=== PATIENT | female | born 1985 | race Caucasian/White ===

== ENCOUNTER 2017-02-03 11:30 | Emergency (ER) | payer OTHER ==
[2017-02-03 13:06] LABS: BLOOD, URINE NEG (NEG); COMMENT (UR) CULT NOT INDICATED; CULTURE IF INDICATED CULT NOT INDICATED; GLUCOSE,URINE NEG (NEG); KETONE, URINE NEG (NEG); MUCUS URINE FEW /lpf (OCC); NITRITE,URINE NEG (NEG); SQUAMOUS EPITHELIAL CELL URINE 2 /hpf (0-5); URINE COLOR YELLOW (YELLW/STRAW)
[2017-02-03] MEDS ORDERED: FLUCONAZOLE 100 MG TAB PO ONE (13:45)
--- NOTE | 2017-02-03 14:03 | PD ---
HPI Chief Complaint diarrhea, vaginal discharge, burning with urination Date Seen: Feb 03, 2017 Time Seen: 13:00 Travel History International Travel<30 Days: No Contact w/Intl Traveler<30Days: No Known Affected Area: No History of Present Illness HPI Pt is a 31 y/o with IUP at 24.2 by 22 wk u/s who presents from [facility] for evaluation of diarrhea x 3 days, white/clumpy vaginal discharge, and burning with urination. Pt states she took antibiotics recently (completed course 1 wk ago) for UTI and has had white vaginal discharge since. She also has trouble starting stream of urination and external discomfort when she does urinate. Pt states diarrhea started 3 days ago and is clear without color. She reports some light spotting intermittently (and states she has had this throughout , dx with subchorionic hemorrhage earlier in ). Pt currently resides in [facility] for h/o drug abuse. Pt was on subutex 4 mg per day until 6 days ago when she got out of detox and was transferred to [facility]. Para: 4 : 10 Miscarriage: 2 : 3 History Past Medical History Narrative Medical psoriasis h/o IV drug use hep C + Obstetric History Obstetric History blighted ovum x 2 EAB x 3 2002 FTSVD complicated by retained placenta, readmission for infection, had D+C 2005 FTSVD 2010 FTSVD 2012 FTSVD complicated by gest DM Past Surgical History Narrative Surgical D+C breast augmentation [facility] for pelvic pain/ov cyst Family History Family History: Negative Social History Alcohol Use: No Tobacco Use: No Substance Abuse: Yes (h/o IV drug use, previously on subutex, denies any drug use currently) Allergies-Medications (Allergen,Severity, Reaction): Coded Allergies: Doxycycline (Verified Allergy, Intermediate, Hives, 10/05/16) Home Meds Active Scripts Hydroxyzine Pamoate 50 Mg Cap50 Mg PO Q8H PRN (anxiety) #90 CAP Prov:Claudia Ya MD 02/03/17 Clonidine (Catapres)0.1 Mg Tab0.1 Mg PO Q6H PRN (withdrawal) #90 TAB Prov:Claudia Ya MD 02/03/17 Narrative Medication vitamin Review of Systems General / Constitutional: No: Fever Respiratory: No: Cough, Short of Breath, Wheezing, Other Gastrointestinal: Diarrhea, Loss of Appetite Genitourinary: Hesitancy, Discharge Musculoskeletal: No: Limited ROM, Weakness, Cramping, Edema, Pain, Other Skin: Lesions Neurologic: No: Weakness, Dizziness, Syncope, Focal Abnormalities, Coordination Problem, Headache, Slurred Speech, Seizures, Other Psychiatric: No: Anxiety, Depression, Suicidal Ideations, Disorder of Thought, Mood Disorder, Substance Abuse, Homicidal Ideation, Other Endocrine: No: Heat Intolerance, Cold Intolerance, Polydipsia, Polyuria, Other Hematologic/Lymphatic: No Easy Bruising, No Lymph Node Enlargement, No Other Physical Exam T 98.2 BP 91/59 P 78 R 16 FHTs 140s Narrative GENERAL: Well-nourished, well-developed patient. SKIN: Warm and dry. HEAD: Normocephalic and atraumatic. EYES: No scleral icterus. No injection or drainage. ENT: No nasal drainage noted. Mucous membranes pink. Airway patent. NECK: Supple, trachea midline. No JVD. CARDIOVASCULAR: Regular rate and rhythm without murmurs, gallops, or rubs. RESPIRATORY: Breath sounds equal bilaterally. No accessory muscle use. ABDOMEN/GI: Abdomen soft, non-tender, bowel sounds present, no rebound, no guarding Gravid GENITOURINARY: External Genitalia: intact and normal in appearance BUS glands: [wnl] Cervix: closed/long/firm Dilatation: closed Effacement: 0 Station: high Presentation: - Membranes: intact Uterine Contractions: none FHT's: 140s EXTREMITIES: No cyanosis or edema. BACK: Nontender without obvious deformity. No CVA tenderness. NEUROLOGICAL: Awake and alert. Motor and sensory grossly within normal limits. Five out of 5 muscle strength in all muscle groups. Normal speech. Data Data Vital Signs Reviewed: Yes Orders Vital Signs (Adult) .ON ADMISSION (02/03/17 12:28) ^ Labor Status (02/03/17 12:28) Urinalysis - C+S If Indicated (02/03/17 12:28) Wet Prep Profile (02/03/17 12:28) Drug Screen, Random Urine (02/03/17 12:28) ^ Hydration (02/03/17 12:45) Lactated Ringer's 1000 Ml Inj (Lr 1000 M (02/03/17 12:45) Fluconazole (Diflucan) (02/03/17 13:45) Labs Laboratory Tests Test 02/03/17 02/03/17 12:30 12:45 Urine Color YELLOW Urine Turbidity CLEAR Urine pH 6.0 Urine Specific [place] 1.018 Urine Protein NEG Urine Glucose (UA) NEG Urine Ketones NEG Urine Occult Blood NEG Urine Nitrite NEG Urine Bilirubin NEG Urine Urobilinogen LESS THAN 2.0 Urine Leukocyte Esterase NEG Urine RBC 1 Urine WBC 1 Urine Squamous Epithelial 2 Cells Urine Mucus FEW Microscopic Urinalysis Comment CULT NOT INDICATED Urine Opiates Screen NEG Urine Barbiturates Screen NEG Urine Amphetamines Screen NEG Urine Benzodiazepines Screen NEG Urine Cocaine Screen NEG Urine Cannabinoids Screen NEG Clue Cells (Wet Prep) NONE SEEN Vaginal Trichomonas (Wet Prep) NONE SEEN Vaginal Yeast (Wet Prep) NONE SEEN MDM Medical Record Reviewed: Yes Narrative Course / MDM 31 y/o with IUP at 24.2 weeks with diarrhea x 3 days, vaginal discharge and external burning with urination 1. diarrhea--possibly secondary to mild withdrawal versus gastroenteritis. Pt appears well. Will give IVF. advised pt she can take benadryl 25 mg q 6 h for mild symptoms. Can also take immodium OTC for up to 48 hrs. 2. dysuria/vag discharge--recently completed course of abx for UTI. UA clean, so possible yeast infection. Will give diflucan x 1 dose 3. hep C + 4. h/o IV drug use--currently at [facility]. [facility] with Dr. Cueva. Diagnosis Diagnosis: Primary Impression: Diarrhea Qualified Code: R19.7 - Diarrhea, unspecified type Additional Impression: 24 weeks gestation of Disposition: DISCHARGE HOME Scripts Hydroxyzine Pamoate 50 Mg Cap50 Mg PO Q8H PRN (anxiety) #90 CAP Prov:Claudia Ya MD 02/03/17 Clonidine (Catapres)0.1 Mg Tab0.1 Mg PO Q6H PRN (withdrawal) #90 TAB Prov:Claudia Ya MD 02/03/17 Michael Lancaster MD Feb 03, 2017 14:03
[2017-02-03 15:02] VITALS: BP 96/61; PULSE 80
[2017-02-03] MEDS: LACTATED RINGER'S 1000 ML INJ 1,000 ML IV SCH ×2 (15:04→17:40)
[2017-02-03 15:56] LABS: AMPHETAMINE, URINE NEG (NEG); BARBITURATES, URINE NEG (NEG); COCAINE, URINE NEG (NEG)
[2017-02-03] MEDS ORDERED: ALUMINUM/MAGNESIUM/SIMETH 30 ML CUP PO ONE (17:00)
[2017-02-03 17:34] LABS: INDIRECT BILIRUBIN 0.2 MG/DL (0.0-0.8); TOTAL BILIRUBIN ADULT 0.3 MG/DL (0.2-1.0)
[2017-02-03 17:39] VITALS: BP 94/56; PULSE 74
[2017-02-03 17:45] VITALS: RESP 16; TEMP 98.5
[2017-02-03] MEDS ORDERED: cloNIDine HCL 0.1 MG TAB PO PRN (17:45)
--- NOTE | 2017-02-03 17:48 | PD.CONS ---
HPI Travel History International Travel<30 Days: No Contact w/Intl Traveler<30Days: No Known Affected Area: No History of Present Illness HPI recent transfer from senior care to [place] to [facility] who had been on low dose subutex --feels she is having profound, delayed withdrawal. N, V, headaches, diarrhea, sweating. GFM no leaking or bleeding, No Ucs Allergies-Medications (Allergen,Severity, Reaction): Coded Allergies: Doxycycline (Verified Allergy, Intermediate, Hives, 10/05/16) Home Meds No Active Prescriptions or Reported Meds Physical Exam Vital Signs Date Time Temp Pulse Resp B/P Pulse Ox O2 Delivery O2 Flow Rate FiO2 02/03/17 15:02 80 96/61 Narrative GENERAL: Well-nourished, well-developed patient. SKIN: Warm and dry. HEAD: Normocephalic and atraumatic. EYES: No scleral icterus. No injection or drainage. mild pupil dilation with reactivity consistent with mild withdrawal ENT: No nasal drainage noted. Mucous membranes pink. Airway patent. NECK: Supple, trachea midline. No JVD. CARDIOVASCULAR: Regular rate and rhythm without murmurs, gallops, or rubs. RESPIRATORY: Breath sounds equal bilaterally. No accessory muscle use. BREASTS: Bilateral exam showed no masses , no retractions, no nipple discharge. ABDOMEN/GI: Abdomen soft, non-tender, bowel sounds present, no rebound, no guarding 24 week fundus strip reassuring EXTREMITIES: No cyanosis or edema. BACK: Nontender without obvious deformity. No CVA tenderness. NEUROLOGICAL: Awake and alert. Motor and sensory grossly within normal limits. Five out of 5 muscle strength in all muscle groups. Normal speech. Data Data Orders Vital Signs (Adult) .ON ADMISSION (02/03/17 12:28) ^ Labor Status (02/03/17 12:28) Urinalysis - C+S If Indicated (02/03/17 12:28) Wet Prep Profile (02/03/17 12:28) ^ Hydration (02/03/17 12:45) Lactated Ringer's 1000 Ml Inj (Lr 1000 M (02/03/17 12:45) Fluconazole (Diflucan) (02/03/17 13:45) Vascular Access Team Consult PRN (02/03/17 13:54) Vascular Access Team Consult PRN (02/03/17 14:08) Vascular Access Team Consult PRN (02/03/17 14:09) Vascular Poc Ultrasound (02/03/17 ) Ob/Psych Drug Screen, Urine (02/03/17 15:27) Hepatic Functional Panel (02/03/17 15:35) Ur Bath Salts (02/03/17 12:30) Ur Heroin (02/03/17 12:30) Ur K2 Spice (02/03/17 12:30) Ur Ecstasy (02/03/17 12:30) Ur Methadone (02/03/17 12:30) Phencyclidine Urine (Pcp) (02/03/17 12:30) Al-Mag Hy-Si 40-40-4 Mg/Ml Liq (Mag-Al P (02/03/17 17:00) Diet Regular Basic (02/03/17 Dinner) Labs Laboratory Tests Test 02/03/17 02/03/17 02/03/17 12:30 12:45 16:40 Urine Color YELLOW Urine Turbidity CLEAR Urine pH 6.0 Urine Specific [place] 1.018 Urine Protein NEG Urine Glucose (UA) NEG Urine Ketones NEG Urine Occult Blood NEG Urine Nitrite NEG Urine Bilirubin NEG Urine Urobilinogen LESS THAN 2.0 Urine Leukocyte Esterase NEG Urine RBC 1 Urine WBC 1 Urine Squamous Epithelial 2 Cells Urine Mucus FEW Microscopic Urinalysis Comment CULT NOT INDICATED Urine Opiates Screen NEG Urine Barbiturates Screen NEG Urine Amphetamines Screen NEG Urine Benzodiazepines Screen NEG Urine Cocaine Screen NEG Urine Cannabinoids Screen NEG Clue Cells (Wet Prep) NONE SEEN Vaginal Trichomonas (Wet Prep) NONE SEEN Vaginal Yeast (Wet Prep) NONE SEEN Total Bilirubin 0.3 Direct Bilirubin 0.1 Indirect Bilirubin 0.2 Aspartate Amino Transf 13 (AST/SGOT) Alanine Aminotransferase 16 (ALT/SGPT) Alkaline Phosphatase 45 Total Protein 6.6 Albumin 2.9 MDM Plan not clear why but does appear to have delayed symptoms of withdrawal Will treat symptomatically with visteril and clonidine. can return to [facility] Scripts No Active Prescriptions or Reported Meds Claudia Ya MD Feb 03, 2017 17:48
[2017-02-03] MEDS ORDERED: CLON.1 PO (17:51)
[2017-02-03] MEDS ORDERED: HYDR50CA PO (17:51)
--- NOTE | 2017-02-03 17:51 | HHI.DCPOC ---
Discharge Care Plan Report Symptoms to Your Doctor -Temperate above 100.5 degrees -Redness, of incision or excessive or foul smelling drainage -Unusual pain or calf pain -Increased vaginal bleeding -Painful or difficulty urinating -Feelings of extreme sadness or anxiety after 2 weeks Goals to Promote Your Health * To prevent worsening of your condition and complications * To maintain your health at the optimal level Directions to Meet Your Goals Take your medications as prescribed Follow your dietary instruction Follow activity as directed Ensure plenty of rest for recovery Drink fluids for hydration Keep your appointments as scheduled Take your immunizations and boosters as scheduled If your symptoms worsen call your PCP, if no PCP go to Urgent Care Center or Emergency Room Smoking is Dangerous to Your Health. Avoid second hand smoke Call the 24-hour crisis hotline for domestic abuse at Claudia Ya MD Feb 03, 2017 17:51
[2017-02-09 12:51] LABS: BATH SALTS (MDPV) UR NEG (NEG); ECSTASY (MDMA) UR NEG (NEG); HEROIN (6-ACETYLMORPHINE) UR NEG (NEG); K2 SPICE UR NEG (NEG); OBMETHADONE UR NEG (NEG); OXYCODONE (PERCODAN) NEG (NEG); PHENCYCLIDINE URINE NEG (NEG)
== END 2017-02-03 20:05 | disposition home or self-care (01) ==
LOC: HOBED 11:30
DX: O26.892 Other specified pregnancy related conditions, second trimester (principal); R19.7 Diarrhea, unspecified; N89.8 Other specified noninflammatory disorders of vagina; O26.852 Spotting complicating pregnancy, second trimester; O98.412 Viral hepatitis complicating pregnancy, second trimester; B19.20 Unspecified viral hepatitis C without hepatic coma; Z87.2 Personal history of diseases of the skin and subcutaneous tissue; Z3A.24 24 weeks gestation of pregnancy
CPT/HCPCS: 76937; 80076; 80307; 81001; 87210; 96360; 96361; 99283; G0481; J7120

== ENCOUNTER 2017-03-23 13:41 | Emergency (ER) | payer MEDICAID, OTHER ==
[~2017-03-23 13:41] MED LIST: CLON.1 PO; HYDR50CA PO
--- NOTE | 2017-03-23 14:18 | PD ---
HPI Chief Complaint LLQ pain Date Seen: March 23, 2017 Time Seen: 14:15 Travel History International Travel<30 Days: No Contact w/Intl Traveler<30Days: No Known Affected Area: No History of Present Illness HPI 31-year-old female G 10 P4 who is at 31 weeks and 2 days complaining a left lower quadrant pain that began yesterday. Patient has good movement and denies contractions denies dysuria and frequency. She does states she had a urinary tract infection 2 months ago that was treated with antibiotics. Para: 4 : 10 Miscarriage: 5 History Past Medical History Medical History: Denies Significant Hx Obstetric History Obstetric History Spontaneous vaginal delivery 4 Past Surgical History Narrative Surgical D&C Laparoscopy Breast augmentation Social History Alcohol Use: No Tobacco Use: No Substance Abuse: No Allergies-Medications (Allergen,Severity, Reaction): Coded Allergies: Doxycycline (Verified Allergy, Intermediate, Hives, 10/05/16) Home Meds Active Scripts Hydroxyzine Pamoate 50 Mg Cap50 Mg PO Q8H PRN (anxiety) #90 CAP Prov:Claudia Ya MD 02/03/17 Clonidine (Catapres)0.1 Mg Tab0.1 Mg PO Q6H PRN (withdrawal) #90 TAB Prov:Claudia Ya MD 02/03/17 Review of Systems Except as stated in HPI: all other systems reviewed are Neg Physical Exam Narrative GENERAL: Well-nourished, well-developed patient. SKIN: Warm and dry. HEAD: Normocephalic and atraumatic. EYES: No scleral icterus. No injection or drainage. ENT: No nasal drainage noted. Mucous membranes pink. Airway patent. NECK: Supple, trachea midline. No JVD. CARDIOVASCULAR: Regular rate and rhythm without murmurs, gallops, or rubs. RESPIRATORY: Breath sounds equal bilaterally. No accessory muscle use. BREASTS: Bilateral exam showed no masses , no retractions, no nipple discharge. ABDOMEN/GI: Abdomen soft, non-tender, bowel sounds present, no rebound, no guarding Gravid to [-] 32 weeks size Fundal Height: [-] GENITOURINARY: External Genitalia: intact and normal in appearance BUS glands: [-Normal] Cervix: [-Posterior] Dilatation: [-Closed] Effacement: [-0] Station: [--4 ballotable Presentation: [Vertex-] Membranes: [intact ] Uterine Contractions: [-Absent] FHT's: Category: [1-] Baseline: [-140] Reactive: [-Moderate] Variability: [Moderate-] Decels: [Absent-] EXTREMITIES: No cyanosis or edema. BACK: Nontender without obvious deformity. No CVA tenderness. NEUROLOGICAL: Awake and alert. Motor and sensory grossly within normal limits. Five out of 5 muscle strength in all muscle groups. Normal speech. Data Data Vital Signs Reviewed: Yes Labs Laboratory Tests Test 03/23/17 14:05 Urine Color YELLOW Urine Turbidity CLEAR Urine pH 5.5 Urine Specific [place] 1.026 Urine Protein TRACE mg/dL Urine Glucose (UA) NEG mg/dL Urine Ketones NEG mg/dL Urine Occult Blood NEG Urine Nitrite NEG Urine Bilirubin NEG Urine Urobilinogen LESS THAN 2.0 MG/DL Urine Leukocyte Esterase NEG Urine RBC 1 /hpf Urine WBC 1 /hpf Urine Squamous Epithelial <1 /hpf Cells Urine Mucus FEW /lpf Microscopic Urinalysis Comment CULT NOT INDICATED MDM Medical Record Reviewed: Yes Plan 31-year-old female at 31 weeks 2 days with round ligament pain on the left side. No signs or symptoms of labor at this time. UA is negative. Diagnosis Diagnosis: Primary Impression: 31 weeks gestation of Additional Impression: Pain of round ligament affecting , antepartum Disposition: 01 DISCHARGE HOME Teri Robertson MD March 23, 2017 14:18
[2017-03-23 15:26] LABS: BLOOD, URINE NEG (NEG); COMMENT (UR) CULT NOT INDICATED; CULTURE IF INDICATED CULT NOT INDICATED; GLUCOSE,URINE NEG (NEG); KETONE, URINE NEG (NEG); MUCUS URINE FEW /lpf (OCC); NITRITE,URINE NEG (NEG); PH, URINE 5.5 (5.0-8.5); SQUAMOUS EPITHELIAL CELL URINE <1 /hpf (0-5); URINE COLOR YELLOW (YELLW/STRAW)
== END 2017-03-23 15:35 | disposition home or self-care (01) ==
LOC: HOBED 13:41
DX: O26.93 Pregnancy related conditions, unspecified, third trimester (principal); R10.2 Pelvic and perineal pain; Z3A.31 31 weeks gestation of pregnancy
CPT/HCPCS: 81001; 99284

== ENCOUNTER 2017-04-17 15:53 | Observation (INO) | payer MEDICAID ==
[~2017-04-17] VITALS: Ht 170.2 cm; Wt 83.5 kg
[2017-04-17] VITALS (36 sets, daily range): BP systolic 104–117; BP diastolic 54–76; PULSE 70–92; RESP 16–18; TEMP 98.2–98.8
[2017-04-17] MEDS: LACTATED RINGER'S 1000 ML INJ 1,000 ML IV SCH (07:00)
--- NOTE | 2017-04-17 16:52 | PD ---
HPI Chief Complaint Vaginal bleeding Date Seen: Apr 17, 2017 Time Seen: 16:25 Travel History International Travel<30 Days: No Contact w/Intl Traveler<30Days: No Known Affected Area: No History of Present Illness HPI 31-year-old 7 para 4 AB 2 at 34-6/7 weeks' gestation with an EDC of May 24 who is currently an inpatient at [facility]. Patient states that at approximately 2 this afternoon she began having some lower back pain and then at 2:30 noticed that she was having some vaginal bleeding with passage of small clots about the size of a nickel. She denies leakage of fluid but does report a mucousy vaginal discharge. She denies trauma. The patient is currently clean and reports no recreational drug use since January. She was on Subutex but has been weaned off of this. She is an ex- smoker with none since January. Para: 4 : 7 Miscarriage: 2 History Past Medical History Narrative Medical Hepatitis C positive History of narcotic abuse Obstetric History Obstetric History 4 term vaginal deliveries, her last delivery was complicated by preeclampsia 2 D&Cs for blighted ovum Past Surgical History Narrative Surgical D&C 2 for blighted ovum Laparoscopy for ovarian cyst Family History Family History: Negative Social History Alcohol Use: No Tobacco Use: Yes (she quit in January) Substance Abuse: Yes (history of Dilaudid abuse and is now reportedly clean since January) Allergies-Medications (Allergen,Severity, Reaction): Coded Allergies: Doxycycline (Verified Allergy, Intermediate, Hives, 10/05/16) Home Meds Active Scripts Hydroxyzine Pamoate 50 Mg Cap50 Mg PO Q8H PRN (anxiety) #90 CAP Prov:Claudia Ya MD 02/03/17 Clonidine (Catapres)0.1 Mg Tab0.1 Mg PO Q6H PRN (withdrawal) #90 TAB Prov:Claudia Ya MD 02/03/17 Review of Systems General / Constitutional: No: Fever, Weight Gain, Chills, Other Eyes: No: Visual changes HENT: No: Headaches, Vertigo, Lightheadedness Cardiovascular: No: Irregular Rhythm, Chest Pain or Discomfort, Palpitations, Tachycardia, Syncope, Varicosities, Edema, Cyanosis Respiratory: No: Cough, Short of Breath, Other Gastrointestinal: No: Nausea, Vomiting, Diarrhea Genitourinary: Vaginal Bleeding, No: Urgency, Frequency, Dysuria, Hematuria Physical Exam Narrative GENERAL: Well-nourished, well-developed patient. SKIN: Warm and dry. HEAD: Normocephalic and atraumatic. EYES: No scleral icterus. No injection or drainage. ENT: No nasal drainage noted. Mucous membranes pink. Airway patent. NECK: Supple, trachea midline. No JVD. CARDIOVASCULAR: Regular rate and rhythm without murmurs, gallops, or rubs. RESPIRATORY: Breath sounds equal bilaterally. No accessory muscle use. ABDOMEN/GI: Abdomen soft, non-tender, bowel sounds present, no rebound, no guarding Gravid to [-] weeks size Fundal Height: [35-] GENITOURINARY: External Genitalia: intact and normal in appearance BUS glands: [-Negative] there is dark blood in the vaginal vault and cervical mucus Cervix: [No lesions or inflammation-] Dilatation: [Closed internally-] Effacement: [-Long] Station: [High-] Presentation: [-Breech] Membranes: [intact] Uterine Contractions: [Mild irregular-] FHT's: Category: [2-] Baseline: [130s-] Reactive: [Yes-] Variability: [-Moderate] Decels: [Variable-] EXTREMITIES: No cyanosis or edema. BACK: Nontender without obvious deformity. No CVA tenderness. NEUROLOGICAL: Awake and alert. Motor and sensory grossly within normal limits. Five out of 5 muscle strength in all muscle groups. Normal speech. Data Data Vital Signs Reviewed: Yes Orders Vital Signs (Adult) .ON ADMISSION (04/17/17 16:28) ^ Labor Status (04/17/17 16:28) Urinalysis - C+S If Indicated (04/17/17 16:28) ^ Non Stress Test (04/17/17 16:28) ^ Hydration (04/17/17 16:28) Wet Prep Profile (04/17/17 16:28) Gc And Chlamydia Pcr (04/17/17 16:28) Group B Beta Strep Scrn (Gbs) (04/17/17 16:28) Drug Screen, Random Urine (04/17/17 16:28) MDM Medical Record Reviewed: Yes Narrative Course / MDM Assessment: 34-6/7 week gestation with vaginal bleeding Plan: Oral hydration with continuous monitoring Urinalysis, wet prep, GBS, GC chlamydia Biophysical profile and amniotic fluid index René Tovar MD Apr 17, 2017 16:52
[2017-04-17 17:10] LABS: BLOOD, URINE SMALL (NEG); COMMENT (UR) CULT NOT INDICATED; CULTURE IF INDICATED CULT NOT INDICATED; GLUCOSE,URINE NEG (NEG); KETONE, URINE NEG (NEG); MUCUS URINE FEW /lpf (OCC); NITRITE,URINE NEG (NEG); PH, URINE 6.5 (5.0-8.5); SQUAMOUS EPITHELIAL CELL URINE <1 /hpf (0-5); URINE COLOR YELLOW (YELLW/STRAW)
[2017-04-17 17:15] LABS: AMPHETAMINE, URINE NEG (NEG); BARBITURATES, URINE NEG (NEG); COCAINE, URINE NEG (NEG)
[2017-04-17] MEDS ORDERED: TERBUTALINE INJ 1 MG/ML AMP ONE (18:00)
[2017-04-17 18:10] LABS: AUTOMATED NEUTROPHIL # 8.9 TH/MM3 (1.8-7.7); BASOPHIL # 0.1 TH/MM3 (0-0.2); BASOPHIL % 0.6 % (0.0-2.0); EOSINOPHIL # 0.1 TH/MM3 (0-0.4); EOSINOPHIL % 0.5 % (0.0-4.0); HEMATOCRIT 37.1 % (35.0-46.0); HEMO FLAGS DIFF FINAL; LYMPH % 21.1 % (9.0-44.0); LYMPHOCYTE # 2.6 TH/MM3 (1.0-4.8); MEAN CELL VOLUME 91.9 FL (80.0-100.0); MEAN CORPUSCULAR HGB CONC 33.8 % (32.0-36.0); MONO % 5.2 % (0.0-8.0); NEUT % 72.6 % (16.0-70.0); PLATELET COUNT 242 TH/MM3 (150-450); RED BLOOD COUNT 4.04 MIL/MM3 (4.00-5.30); RED CELL DISTRIBUTION WIDTH 13.9 % (11.6-17.2); WHITE BLOOD COUNT 12.3 TH/MM3 (4.0-11.0)
[2017-04-17] MEDS ORDERED: LACTATED RINGER'S 1000 ML INJ 1,000 ML IV STA (19:55)
[2017-04-17] MEDS ORDERED: TERBUTALINE INJ 1 MG/ML AMP SQ SCH (20:00)
[2017-04-17] MEDS: BETAMETHASONE SOD PHOS/ACETATE SUSP 30 MG/5 ML VIAL IM SCH (20:10)
[2017-04-17 20:15] LABS: CHLAMYDIA PCR NOT DETECTED (NOT DETECT); NEISSERIA PCR NOT DETECTED (NOT DETECT)
[2017-04-17] MEDS: ALUMINUM/MAGNESIUM/SIMETH 30 ML CUP PO SCH (23:59)
[2017-04-18] VITALS (14 sets, daily range): BP systolic 78–109; BP diastolic 38–56; PULSE 68–92; RESP 17–18; TEMP 97.6–98.4
[2017-04-18] MEDS: LACTATED RINGER'S 1000 ML INJ 1,000 ML IV SCH (04:00)
--- NOTE | 2017-04-18 09:33 | PD.OB.ANTE ---
Subjective Interval History Placed in observation for contractions and bleeding with several clots at 34+ weeks. Currently at [facility] and had very upsetting day yesterday, learning that additional charges from 2 years ago may cause her to be sentenced out. All agree she is best at [facility] and I will petition [employer] today. Bleeding now spotting only. UCs have resolved. Strip beautiful. She appears rested and comfortable. Objective Vital Signs Vital Signs Date Time Temp Pulse Resp B/P Pulse Ox O2 Delivery O2 Flow Rate FiO2 04/18/17 08:00 98.1 17 04/18/17 07:14 70 90/38 04/18/17 02:00 98.4 18 04/18/17 01:59 71 87/40 04/18/17 00:15 97.6 18 04/18/17 00:03 71 100/50 04/18/17 00:02 68 78/38 04/17/17 21:25 81 04/17/17 21:20 82 04/17/17 21:15 85 04/17/17 21:10 80 04/17/17 21:05 78 04/17/17 21:00 80 04/17/17 20:55 83 04/17/17 20:50 83 04/17/17 20:45 85 04/17/17 20:40 86 04/17/17 20:35 81 04/17/17 20:30 79 04/17/17 20:25 83 04/17/17 20:20 81 04/17/17 20:15 79 04/17/17 20:10 83 04/17/17 20:05 84 04/17/17 20:00 84 04/17/17 19:55 80 04/17/17 19:50 86 04/17/17 19:45 83 04/17/17 19:40 82 04/17/17 19:35 84 04/17/17 19:30 82 04/17/17 19:25 81 04/17/17 19:20 81 04/17/17 19:15 84 04/17/17 19:15 98.2 18 04/17/17 19:10 87 04/17/17 19:05 82 104/54 04/17/17 19:05 85 04/17/17 18:40 86 04/17/17 17:40 70 04/17/17 17:35 72 04/17/17 17:34 98.8 16 04/17/17 17:32 73 113/62 04/17/17 16:15 18 04/17/17 16:15 98.8 04/17/17 16:07 92 117/76 Lab & Micro Results Test 04/17/17 04/17/17 16:22 17:55 Urine Color YELLOW Urine Turbidity HAZY Urine pH 6.5 Urine Specific [place] 1.027 Urine Protein TRACE mg/dL Urine Glucose (UA) NEG mg/dL Urine Ketones NEG mg/dL Urine Occult Blood SMALL Urine Nitrite NEG Urine Bilirubin NEG Urine Urobilinogen LESS THAN 2.0 MG/DL Urine Leukocyte Esterase NEG Urine RBC 21 /hpf Urine WBC 3 /hpf Urine Squamous Epithelial <1 /hpf Cells Urine Amorphous Sediment RARE Urine Mucus FEW /lpf Microscopic Urinalysis Comment CULT NOT INDICATED Clue Cells (Wet Prep) NONE SEEN Vaginal Trichomonas (Wet Prep) NONE SEEN Vaginal Yeast (Wet Prep) NONE SEEN Urine Opiates Screen NEG Urine Barbiturates Screen NEG Urine Amphetamines Screen NEG Urine Benzodiazepines Screen NEG Urine Cocaine Screen NEG Urine Cannabinoids Screen NEG Chlamydia trachomatis DNA NOT DETECTED (PCR) Neisseria gonorrhoeae DNA NOT DETECTED (PCR) White Blood Count 12.3 TH/MM3 Red Blood Count 4.04 MIL/MM3 Hemoglobin 12.5 GM/DL Hematocrit 37.1 % Mean Corpuscular Volume 91.9 FL Mean Corpuscular Hemoglobin 31.0 PG Mean Corpuscular Hemoglobin 33.8 % Concent Red Cell Distribution Width 13.9 % Platelet Count 242 TH/MM3 Mean Platelet Volume 7.5 FL Neutrophils (%) (Auto) 72.6 % Lymphocytes (%) (Auto) 21.1 % Monocytes (%) (Auto) 5.2 % Eosinophils (%) (Auto) 0.5 % Basophils (%) (Auto) 0.6 % Neutrophils # (Auto) 8.9 TH/MM3 Lymphocytes # (Auto) 2.6 TH/MM3 Monocytes # (Auto) 0.6 TH/MM3 Eosinophils # (Auto) 0.1 TH/MM3 Basophils # (Auto) 0.1 TH/MM3 CBC Comment DIFF FINAL Differential Comment Band and Hold Date/Time Procedure Status Source Growth 04/17/17 16:22 Group B Streptococcus Screen Received Genital Genital Region Pending Physical Exam GENERAL: Well-nourished, well-developed patient. CARDIOVASCULAR: Regular rate and rhythm without murmurs, gallops, or rubs. RESPIRATORY: Breath sounds equal bilaterally. No accessory muscle use. ABDOMEN/GI: Abdomen soft, non-tender. 34 week fundus cervix not checked she is P4 EXTREMITIES: No cyanosis or edema, non-tender, without signs of DVT. Assessment and Plan Assessment and Plan complete course of steroids discharge to copywriting intern am dc fluids seroquel 25 q HS Claudia Ya MD Apr 18, 2017 09:33
[2017-04-18] MEDS: ALUMINUM/MAGNESIUM/SIMETH 30 ML CUP PO SCH (19:37)
[2017-04-18] MEDS: BETAMETHASONE SOD PHOS/ACETATE SUSP 30 MG/5 ML VIAL IM SCH (20:39)
[2017-04-18] MEDS ORDERED: QUEtiapine FUMARATE 25 MG TAB PO SCH (21:00)
[2017-04-19 08:10] VITALS: BP 105/56; PULSE 72
--- NOTE | 2017-04-19 08:11 | HHI.DCPOC ---
Discharge Care Plan Report Symptoms to Your Doctor -Temperature above 100.5 degrees -Redness, of incision or excessive or foul smelling drainage -Unusual pain or calf pain -Increased vaginal bleeding -Painful or difficulty urinating -Feelings of extreme sadness or anxiety after 2 weeks Goals to Promote Your Health * To prevent worsening of your condition and complications * To maintain your health at the optimal level Directions to Meet Your Goals Take your medications as prescribed Follow your dietary instruction Follow activity as directed Ensure plenty of rest for recovery Drink fluids for hydration Keep your appointments as scheduled Take your immunizations and boosters as scheduled If your symptoms worsen call your PCP, if no PCP go to Urgent Care Center or Emergency Room Smoking is Dangerous to Your Health. Avoid second hand smoke Call the 24-hour crisis hotline for domestic abuse at Claudia Ya MD Apr 19, 2017 08:11
[2017-04-19 08:12] VITALS: RESP 20; TEMP 98.1
== END 2017-04-19 09:52 | disposition home or self-care (01) ==
LOC: HOBED 15:53 → H2EA 17:17 → UNDOADMIN 17:19 → H2EA 17:22 → UNDOADMIN 17:22 → H2EA 17:31 → UNDOADMOB 17:31
PROVIDERS: ADMIT Obstetrics & Gynecology; ATTEND Obstetrics & Gynecology
DX: O46.93 Antepartum hemorrhage, unspecified, third trimester (principal); O47.03 False labor before 37 completed weeks of gestation, third trimester; Z3A.34 34 weeks gestation of pregnancy
CPT/HCPCS: 59025; 76816; 76819; 80307; 81001; 85025; 87081; 87210; 87491; 87591; 96374; 96375; 96376; 99285; G0378; J0702; J3010; J3105; J7120

== ENCOUNTER 2017-04-30 23:48 | Emergency (ER) | payer MEDICAID ==
--- NOTE | 2017-05-01 00:25 | PD ---
HPI Chief Complaint vaginal fluid, abdominal cramping Date Seen: May 01, 2017 Time Seen: 00:19 Travel History International Travel<30 Days: No Contact w/Intl Traveler<30Days: No Known Affected Area: No History of Present Illness HPI at 36 weeks 5 days comes in complaining of vaginal fluid that she noted for a couple times today and some lower abdominal cramping mild, intermittent that started in the afternoon. Last cervical exam patient had a group B strep done and her cervix was noted be 2 cm. No other complications during the , patient has a history of opioid use has gone through detox and is normal on no medication. Para: 4 : 7 Miscarriage: 2 History Past Medical History Medical History: Denies Significant Hx Obstetric History Obstetric History Spontaneous vaginal delivery 4 Miscarriage 2 Breast augmentation D&C Laparoscopy for ovarian cysts Family History Family History: Negative Social History Alcohol Use: No Tobacco Use: No Substance Abuse: No Allergies-Medications (Allergen,Severity, Reaction): Coded Allergies: Doxycycline (Verified Allergy, Intermediate, Hives, 10/05/16) Home Meds Active Scripts Hydroxyzine Pamoate 50 Mg Cap50 Mg PO Q8H PRN (anxiety) #90 CAP Prov:Claudia Ya MD 02/03/17 Clonidine (Catapres)0.1 Mg Tab0.1 Mg PO Q6H PRN (withdrawal) #90 TAB Prov:Claudia Ya MD 02/03/17 Review of Systems Except as stated in HPI: all other systems reviewed are Neg Physical Exam Narrative GENERAL: Well-nourished, well-developed patient. SKIN: Warm and dry. HEAD: Normocephalic and atraumatic. EYES: No scleral icterus. No injection or drainage. ENT: No nasal drainage noted. Mucous membranes pink. Airway patent. NECK: Supple, trachea midline. No JVD. CARDIOVASCULAR: Regular rate and rhythm without murmurs, gallops, or rubs. RESPIRATORY: Breath sounds equal bilaterally. No accessory muscle use. ABDOMEN/GI: Abdomen soft, non-tender, bowel sounds present, no rebound, no guarding Gravid to [-36] weeks size Fundal Height: [-] GENITOURINARY: External Genitalia: intact and normal in appearance BUS glands: [-Normal] Cervix: [Posterior-] Dilatation: [1-2-] Effacement: [-0] Station: [-High] Presentation: [Vertex-] Membranes: [intact with negative amnisure] Uterine Contractions: [-Occasional] FHT's: Category: [-1] Baseline: [140-] Reactive: [-Moderate] Variability: [-Moderate] Decels: [-Absent] EXTREMITIES: No cyanosis or edema. BACK: Nontender without obvious deformity. No CVA tenderness. NEUROLOGICAL: Awake and alert. Motor and sensory grossly within normal limits. Five out of 5 muscle strength in all muscle groups. Normal speech. Data Data Vital Signs Reviewed: Yes Orders Vital Signs (Adult) .ON ADMISSION (05/01/17 00:18) ^ Labor Status (05/01/17 00:18) Urinalysis - C+S If Indicated (05/01/17 00:18) Labs Laboratory Tests Test 05/01/17 00:05 Urine Color YELLOW Urine Turbidity CLEAR Urine pH 5.5 Urine Specific [place] 1.014 Urine Protein TRACE mg/dL Urine Glucose (UA) NEG mg/dL Urine Ketones NEG mg/dL Urine Occult Blood NEG Urine Nitrite NEG Urine Bilirubin NEG Urine Urobilinogen LESS THAN 2.0 MG/DL Urine Leukocyte Esterase NEG Urine RBC 1 /hpf Urine WBC 1 /hpf Urine Mucus FEW /lpf Microscopic Urinalysis Comment CULT NOT INDICATED MDM Plan 31-year-old female at 36 and 37 weeks gestation False labor Diagnosis Diagnosis: Primary Impression: 36 weeks gestation of Additional Impressions: False labor before 37 completed weeks of gestation False labor after 37 completed weeks of gestation Intact amniotic membranes during in third trimester Disposition: DISCHARGE HOME Teri Robertson MD May 01, 2017 00:25
[2017-05-01 00:46] LABS: BLOOD, URINE NEG (NEG); GLUCOSE,URINE NEG (NEG); KETONE, URINE NEG (NEG); MUCUS URINE FEW /lpf (OCC); NITRITE,URINE NEG (NEG); PH, URINE 5.5 (5.0-8.5); URINE COLOR YELLOW (YELLW/STRAW)
[2017-05-01 00:49] LABS: COMMENT (UR) CULT NOT INDICATED; CULTURE IF INDICATED CULT NOT INDICATED
== END 2017-05-01 01:03 | disposition home or self-care (01) ==
LOC: HOBED 23:48
DX: O47.03 False labor before 37 completed weeks of gestation, third trimester (principal); Z3A.36 36 weeks gestation of pregnancy
CPT/HCPCS: 81001; 84112; 99282

== ENCOUNTER 2017-05-12 19:09 | Inpatient (IN) | payer MEDICAID ==
[2017-05-12] VITALS (10 sets, daily range): BP systolic 102–114; BP diastolic 52–64; PULSE 79–91; RESP 18; TEMP 98.2
[~2017-05-12] VITALS: Ht 165.1 cm; Wt 86.2 kg
[2017-05-12] MEDS ORDERED: SODIUM CHLOR 0.9% 1000 ML INJ 1,000 ML OTHER PRN (19:49)
[2017-05-12] MEDS ORDERED: LACTATED RINGER'S 1000 ML INJ 1,000 ML IV PRN (19:49)
[2017-05-12] MEDS ORDERED: CITRIC ACID-SODIUM CITRATE LIQ 30 ML UDC PO SCH (20:00)
[2017-05-12] MEDS ORDERED: SODIUM CHLORID 0.9% 500 ML INJ 500 ML IV PRN (20:00)
[2017-05-12] MEDS ORDERED: PENICILLIN G POTASSIUM INJ 5,000,000 UNITS in SODIUM CHLORIDE 0.9% INJ 100 ML IV ONE (20:00)
[2017-05-12] MEDS ORDERED: LIDOCAINE HCL 1% 50 ML VIAL I-DERMAL PRN (20:00)
[2017-05-12] MEDS ORDERED: DINOPROSTONE 10 MG VAG INSERT VAGINAL ONE (20:00)
[2017-05-12] MEDS ORDERED: OXYTOCIN 30 UNITS-500ML PREMIX 500 ML IV ONE (20:00)
[2017-05-12] MEDS ORDERED: MINERAL OIL 10 ML VIAL TOPICAL PRN (20:00)
[2017-05-12] MEDS ORDERED: LIDOCAINE HCL 1% 50 ML VIAL INFIL PRN (20:00)
[2017-05-12] MEDS ORDERED: SODIUM CHLOR 0.9% 1000 ML INJ 1,000 ML IV PRN (20:09)
[2017-05-12 20:45] LABS: AUTOMATED NEUTROPHIL # 9.4 TH/MM3 (1.8-7.7); BASOPHIL % 0.2 % (0.0-2.0); EOSINOPHIL # 0.1 TH/MM3 (0-0.4); HEMO FLAGS DIFF FINAL; LYMPH % 23.2 % (9.0-44.0); LYMPHOCYTE # 3.2 TH/MM3 (1.0-4.8); MEAN CELL VOLUME 91.1 FL (80.0-100.0); MEAN CORPUSCULAR HEMOGLOBIN 30.4 PG (27.0-34.0); MEAN CORPUSCULAR HGB CONC 33.4 % (32.0-36.0); MONO % 6.2 % (0.0-8.0); NEUT % 69.4 % (16.0-70.0); PLATELET COUNT 250 TH/MM3 (150-450); RED BLOOD COUNT 4.06 MIL/MM3 (4.00-5.30); RED CELL DISTRIBUTION WIDTH 13.6 % (11.6-17.2); WHITE BLOOD COUNT 13.6 TH/MM3 (4.0-11.0)
[2017-05-12] MEDS: LACTATED RINGER'S 1000 ML INJ 1,000 ML IV SCH (20:49)
[2017-05-12 20:51] LABS: BLOOD, URINE NEG (NEG); COMMENT (UR) CULT NOT INDICATED; CULTURE IF INDICATED CULT NOT INDICATED; GLUCOSE,URINE NEG (NEG); KETONE, URINE NEG (NEG); MUCUS URINE FEW /lpf (OCC); NITRITE,URINE NEG (NEG); SQUAMOUS EPITHELIAL CELL URINE <1 /hpf (0-5); URINE COLOR YELLOW (YELLW/STRAW)
[2017-05-12 20:52] LABS: AMPHETAMINE, URINE NEG (NEG); BARBITURATES, URINE NEG (NEG); COCAINE, URINE NEG (NEG)
[2017-05-12] MEDS: ONDANSETRON HCL 4 MG/2 ML VIAL IV PRN (22:09)
[2017-05-12] MEDS ORDERED: SERO25TA PO (22:17)
[2017-05-12] MEDS ORDERED: PREN1TAB58 PO (22:17)
[2017-05-12] MEDS ORDERED: ePHEDrine/NS 25 MG/5 ML SYR ONE ×2 (23:42→23:51)
[2017-05-12] MEDS ORDERED: fentaNYL 2MCG-BUPIV 0.125% INJ 100 ML ONE (23:42)
[2017-05-12] MEDS ORDERED: BUPIVACAINE HCL PF 0.25% 10 ML VIAL ONE (23:51)
[2017-05-13] VITALS (102 sets, daily range): BP systolic 70–136; BP diastolic 43–84; PULSE 62–144; RESP 1–20; TEMP 97.8–98.9
[2017-05-13] MEDS: PENICILLIN G POTASSIUM INJ 2,500,000 UNITS in SODIUM CHLORIDE 0.9% INJ 100 ML IV SCH ×3 (02:00→09:49)
[2017-05-13] MEDS: LACTATED RINGER'S 1000 ML INJ 1,000 ML IV SCH ×2 (03:49→08:15)
[2017-05-13] MEDS ORDERED: fentaNYL 2MCG-BUPIV 0.125% INJ 100 ML ONE (06:36)
[2017-05-13] MEDS ORDERED: OXYTOCIN 30 UNITS-500ML PREMIX 500 ML ONE (07:40)
[2017-05-13] MEDS: ONDANSETRON HCL 4 MG/2 ML VIAL IV PRN (08:12)
--- NOTE | 2017-05-13 09:05 | HHI.HP ---
HPI Chief Complaint 38 1/2 weeks EGA with oligohydramnios opioid addiction in abstinence based residential [facility] multip with favorable cervix Date Seen: May 13, 2017 Travel History International Travel<30 Days: No Contact w/Intl Traveler<30Days: No Known Affected Area: No History of Present Illness HPI 31 yo swf at 38 1/2 weeks admitted for cervidil due to oligohydramnios. She has been at [facility] since detoxed at [facility] after cleared by me and the custodial. Has been compliant with no issues since. Drugs of choice were opioids, including heroin all used IV. She is hep C + . GBS+ No PTL , GDM or HTN. No leaking, bleeding at time of eval in office. GFM. Did have first trimester bleed of significance. And has had several episodes in third trimester (no previa and etiology never clear) Para: 4 : 7 Allergies-Medications (Allergen,Severity, Reaction): Coded Allergies: Doxycycline (Verified Allergy, Intermediate, Hives, 05/12/17) Home Meds Reported Medications Vit/Iron Fumarate/FA ( Vitamin Formula Tb)1 Each Tablet1 Tab PO DAILY 05/12/17 Quetiapine (Seroquel)25 Mg Tab25 Mg PO HS #30 TAB Ref 0 05/12/17 Discontinued Scripts Hydroxyzine Pamoate 50 Mg Cap50 Mg PO Q8H PRN (anxiety) #90 CAP Prov:Claudia Ya MD 02/03/17 Clonidine (Catapres)0.1 Mg Tab0.1 Mg PO Q6H PRN (withdrawal) #90 TAB Prov:Claudia Ya MD 02/03/17 Review of Systems General / Constitutional: No: Fever, Weight Gain, Chills, Other Physical Exam Vital Signs Date Time Temp Pulse Resp B/P Pulse Ox O2 Delivery O2 Flow Rate FiO2 05/13/17 08:10 72 05/13/17 08:05 71 05/13/17 08:00 100/54 05/13/17 08:00 70 05/13/17 08:00 72 05/13/17 07:40 66 05/13/17 07:35 79 05/13/17 07:33 67 105/52 05/13/17 07:31 79 93/57 05/13/17 07:30 75 7/6/17 07:15 98.0 18 7/6/17 07:10 62 7/6/17 07:05 75 7/6/17 07:00 136 107/53 76/17 07:00 66 76/17 06:45 18 7/6/17 06:36 18 76/17 06:35 77 7/6/17 06:35 73 76/17 06:30 74 76/17 06:30 67 76/17 06:30 74 107/65 76/17 06:00 144 106/71 76/17 06:00 18 76/17 06:00 73 7/17 05:40 133 7/17 05:35 90 17 05:30 67 17 05:30 69 89/43 76/17 05:10 76 717 05:05 72 717 05:00 76 7 05:00 97.8 76 18 93/47 7/17 04:45 18 76/17 04:40 81 76/17 04:35 77 76/17 04:31 83 100/45 76/17 04:30 72 76/17 04:15 18 717 04:10 74 7/17 04:05 84 76/17 04:00 75 76/17 04:00 74 104/67 76/17 03:45 18 76/17 03:40 75 7/17 03:35 80 76/17 03:31 72 100/56 7/6/17 03:30 73 76/17 03:00 1 717 03:00 18 76/17 02:40 79 76/17 02:35 73 7/6/17 02:30 71 109/64 76/17 02:30 72 76/17 02:24 18 76/17 02:10 77 7617 02:05 76 76/17 02:01 85 70/44 76/17 02:00 76 717 02:00 98.9 18 76/17 01:45 77 7/17 01:45 80 05/13/17 01:45 81 109/61 05/13/17 01:35 100 7 01:35 89 7 01:30 80 7 01:30 18 05/13/17 01:30 88 108/54 05/13/17 01:30 80 05/13/17 01:25 70 05/13/17 01:25 71 05/13/17 01:20 72 05/13/17 01:20 76 05/13/17 01:15 77 05/13/17 01:15 78 111/64 05/13/17 01:15 75 05/13/17 01:01 73 117/58 05/13/17 01:00 71 05/13/17 01:00 18 05/13/17 01:00 72 05/13/17 00:55 87 05/13/17 00:55 94 05/13/17 00:50 84 05/13/17 00:50 86 05/13/17 00:45 79 05/13/17 00:45 79 18 116/73 05/13/17 00:45 83 05/13/17 00:30 117/55 05/13/17 00:25 78 05/13/17 00:25 76 05/13/17 00:20 77 05/13/17 00:20 75 05/13/17 00:16 72 109/60 05/13/17 00:15 75 05/13/17 00:15 75 05/13/17 00:14 18 05/13/17 00:11 84 136/59 05/13/17 00:10 75 05/13/17 00:10 75 05/13/17 00:05 87 05/13/17 00:05 86 121/80 05/13/17 00:05 87 05/13/17 00:00 83 05/13/17 00:00 81 18 122/77 05/13/17 00:00 80 05/12/17 23:42 18 05/12/17 23:15 98.2 18 05/12/17 23:10 82 05/12/17 23:09 81 102/52 05/12/17 23:05 79 05/12/17 23:00 81 7 21:30 18 05/12/17 20:45 18 05/12/17 19:45 98.2 05/12/17 19:45 18 05/12/17 19:40 89 05/12/17 19:35 90 05/12/17 19:35 91 114/64 Narrative GENERAL: Well-nourished, well-developed patient. SKIN: Warm and dry. HEAD: Normocephalic and atraumatic. EYES: No scleral icterus. No injection or drainage. ENT: No nasal drainage noted. Mucous membranes pink. Airway patent. NECK: Supple, trachea midline. No JVD. CARDIOVASCULAR: Regular rate and rhythm without murmurs, gallops, or rubs. RESPIRATORY: Breath sounds equal bilaterally. No accessory muscle use. BREASTS: Bilateral exam showed no masses , no retractions, no nipple discharge. ABDOMEN/GI: Abdomen soft, non-tender, bowel sounds present, no rebound, no guarding 39 cm SANDRA 4 4 cm /50/-2 Strip category 1 Proven to 7 1/2 pounds pevlis clinically adequate EXTREMITIES: No cyanosis or edema. BACK: Nontender without obvious deformity. No CVA tenderness. NEUROLOGICAL: Awake and alert. Motor and sensory grossly within normal limits. Five out of 5 muscle strength in all muscle groups. Normal speech. Data Data Orders Admit To Inpatient (05/12/17 ) Code Status (05/12/17 19:49) Vital Signs (Adult) .Per protocol (05/12/17 19:49) Activity Oob Ad Amanda (05/12/17 19:49) Heart (05/12/17 19:49) Amnioinfusion (05/12/17 19:49) Urinary Catheter Management .ONCE (05/12/17 19:49) Diet Liquid (05/13/17 Breakfast) Lactated Ringer's 1000 Ml Inj (Lr 1000 M (05/12/17 19:49) Lactated Ringer's 1000 Ml Inj (Lr 1000 M (05/12/17 19:49) Sodium Chlorid 0.9% 500 Ml Inj (Ns 500 M (05/12/17 20:00) Sodium Chlor 0.9% 1000 Ml Inj (Ns 1000 M (05/12/17 20:09) Lidocaine 1% Inj (50 Ml) (Xylocaine 1% I (05/12/17 20:00) Citric Acid-Sodium Citrate Liq (Bicitra (05/12/17 20:00) Ondansetron Inj (Zofran Inj) (05/12/17 20:00) Fentanyl Inj (Fentanyl Inj) (05/12/17 20:00) Fentanyl Inj (Fentanyl Inj) (05/12/17 20:00) Penicillin G Potassium Inj (Pfizerpen-G (05/12/17 20:00) Penicillin G Potassium Inj (Pfizerpen-G (05/13/17 00:00) Complete Blood Count With Diff (05/12/17 19:49) Hold Clot (05/12/17 19:49) Abo/Rh Blood Type (05/12/17 19:49) Urinalysis - C+S If Indicated (05/12/17 19:49) Resp Oxygen Non Rebreathe Mask (05/12/17 ) ^ Epidural / Intrathecal Infus (05/12/17 19:49) Oxytocin 30 Units-500ml Premix (Pitocin (05/12/17 20:00) Lidocaine 1% Inj (50 Ml) (Xylocaine 1% I (05/12/17 20:00) Light Mineral Oil (Muri-Lube Oil) (05/12/17 20:00) Inpatient Certification (05/12/17 ) Specimen To Be Collected PRN (05/12/17 19:49) Ob/Psych Drug Screen, Urine (05/12/17 19:49) ^ Labor Induction (05/12/17 19:49) ^ Vaginal Insert (05/12/17 19:49) ^ Vaginal Lavage (05/12/17 19:49) Heart (05/12/17 19:49) Sodium Chlor 0.9% 1000 Ml Inj (Ns 1000 M (05/12/17 19:49) Dinoprostone Vag Insert (Cervidil Vag In (05/12/17 20:00) Ur Bath Salts (05/12/17 20:05) Ur Heroin (05/12/17 20:05) Ur K2 Spice (05/12/17 20:05) Ur Ecstasy (05/12/17 20:05) Phencyclidine Urine (Pcp) (05/12/17 20:05) Fentanyl 2mcg-Bupiv 0.125% Inj (Fentanyl (05/12/17 23:42) Ephedrine/Ns 25 Mg/5 Ml Syr (Ephedrine/N (05/12/17 23:42) Bupivacaine Pf 0.25% Inj (Marcaine Pf 0. (05/12/17 23:51) Ephedrine/Ns 25 Mg/5 Ml Syr (Ephedrine/N (05/12/17 23:51) Fentanyl 2mcg-Bupiv 0.125% Inj (Fentanyl (05/13/17 06:36) Oxytocin 30 Units-500ml Premix (Pitocin (05/13/17 07:40) Labs Laboratory Tests Test 05/12/17 20:05 White Blood Count 13.6 Red Blood Count 4.06 Hemoglobin 12.4 Hematocrit 37.0 Mean Corpuscular Volume 91.1 Mean Corpuscular Hemoglobin 30.4 Mean Corpuscular Hemoglobin 33.4 Concent Red Cell Distribution Width 13.6 Platelet Count 250 Mean Platelet Volume 7.7 Neutrophils (%) (Auto) 69.4 Lymphocytes (%) (Auto) 23.2 Monocytes (%) (Auto) 6.2 Eosinophils (%) (Auto) 1.0 Basophils (%) (Auto) 0.2 Neutrophils # (Auto) 9.4 Lymphocytes # (Auto) 3.2 Monocytes # (Auto) 0.8 Eosinophils # (Auto) 0.1 Basophils # (Auto) 0.0 CBC Comment DIFF FINAL Differential Comment Urine Color YELLOW Urine Turbidity CLEAR Urine pH 5.0 Urine Specific [place] 1.019 Urine Protein NEG Urine Glucose (UA) NEG Urine Ketones NEG Urine Occult Blood NEG Urine Nitrite NEG Urine Bilirubin NEG Urine Urobilinogen LESS THAN 2.0 Urine Leukocyte Esterase NEG Urine RBC LESS THAN 1 Urine WBC 3 Urine Squamous Epithelial <1 Cells Urine Mucus FEW Microscopic Urinalysis Comment CULT NOT INDICATED Urine Opiates Screen NEG Urine Barbiturates Screen NEG Urine Amphetamines Screen NEG Urine Benzodiazepines Screen NEG Urine Cocaine Screen NEG Urine Cannabinoids Screen NEG Blood Type O POSITIVE Band and Hold Assessment/Plan Assessment and Plan term with oligo for arom and pitocin in short term remission at abstinence based residential anticipate Claudia Barnes MD May 13, 2017 09:05
--- NOTE | 2017-05-13 09:07 | PD.LABORPN ---
Subjective Subjective has migraine otherwise comfortable with epidural; Objective Vital Signs Vital Signs Date Time Temp Pulse Resp B/P Pulse Ox O2 Delivery O2 Flow Rate FiO2 05/13/17 08:10 72 05/13/17 08:05 71 05/13/17 08:00 100/54 05/13/17 08:00 70 05/13/17 08:00 72 05/13/17 07:40 66 05/13/17 07:35 79 05/13/17 07:33 67 105/52 05/13/17 07:31 79 93/57 05/13/17 07:30 75 05/13/17 07:15 98.0 18 05/13/17 07:10 62 05/13/17 07:05 75 05/13/17 07:00 136 107/53 05/13/17 07:00 66 05/13/17 06:45 18 05/13/17 06:36 18 05/13/17 06:35 77 05/13/17 06:35 73 05/13/17 06:30 74 05/13/17 06:30 67 05/13/17 06:30 74 107/65 05/13/17 06:00 144 106/71 05/13/17 06:00 18 05/13/17 06:00 73 05/13/17 05:40 133 05/13/17 05:35 90 05/13/17 05:30 67 05/13/17 05:30 69 89/43 05/13/17 05:10 76 05/13/17 05:05 72 05/13/17 05:00 76 05/13/17 05:00 97.8 76 18 93/47 05/13/17 04:45 18 05/13/17 04:40 81 05/13/17 04:35 77 05/13/17 04:31 83 100/45 05/13/17 04:30 72 05/13/17 04:15 18 05/13/17 04:10 74 05/13/17 04:05 84 05/13/17 04:00 75 05/13/17 04:00 74 104/67 05/13/17 03:45 18 05/13/17 03:40 75 05/13/17 03:35 80 05/13/17 03:31 72 100/56 05/13/17 03:30 73 05/13/17 03:00 1 05/13/17 03:00 18 05/13/17 02:40 79 05/13/17 02:35 73 05/13/17 02:30 71 109/64 05/13/17 02:30 72 05/13/17 02:24 18 05/13/17 02:10 77 05/13/17 02:05 76 05/13/17 02:01 85 70/44 05/13/17 02:00 76 05/13/17 02:00 98.9 18 05/13/17 01:45 77 05/13/17 01:45 80 05/13/17 01:45 81 109/61 05/13/17 01:35 100 05/13/17 01:35 89 05/13/17 01:30 80 05/13/17 01:30 18 05/13/17 01:30 88 108/54 05/13/17 01:30 80 05/13/17 01:25 70 05/13/17 01:25 71 05/13/17 01:20 72 05/13/17 01:20 76 05/13/17 01:15 77 05/13/17 01:15 78 111/64 05/13/17 01:15 75 Objective 4/50/-2 arom clear category 1 strip Assessment/Plan Assessment and Plan fioricet and pitocin Claudia Ya MD May 13, 2017 09:06
[2017-05-13] MEDS ORDERED: OXYTOCIN 30 UNITS-500ML PREMIX 500 ML IV SCH (09:15)
[2017-05-13] MEDS ORDERED: ACETAMIN 325 MG/BUTALBITAL 50 MG/CAFFEINE 40 MG TAB PO ONE (09:15)
[2017-05-13] MEDS ORDERED: MEASLES, MUMPS, RUBELLA VACCINE 0.5 ML VIAL SQ ONE (16:00)
[2017-05-13] MEDS ORDERED: DIPHTH/TETANUS/ACEL PERTUSSIS (BOOSTER) 0.5 ML VIAL/PFS IM ONE (16:00)
[2017-05-13] MEDS ORDERED: SODIUM CHLORIDE 0.9% FLUSH 10 ML FLUSH IV FLUSH PRN (17:15)
[2017-05-13] MEDS ORDERED: DOCUSATE SODIUM 50 MG/SENNA 8.6 MG TAB PO PRN (17:15)
--- NOTE | 2017-05-13 17:33 | PD.OB.DELI ---
Anesthesia: Epidural Episiotomy: None Vaginal Delivery: Normal Presentation: Occiput anterior Nuchal Cord: None Delayed cord clamping (45 sec): Yes Infant: Female One Minute : 9 Five Minute : 9 Placenta: Spontaneous delivery Laceration: No lacerations Claudia Ya MD May 13, 2017 17:33
[2017-05-13] MEDS ORDERED: ZOLPIDEM TARTRATE 5 MG TAB PO PRN (18:00)
[2017-05-13] MEDS ORDERED: WITCH HAZEL 50%/GLYCERIN 12.5% 40 PAD JAR TOPICAL PRN (18:00)
[2017-05-13] MEDS ORDERED: ONDANSETRON ODT 4 MG TAB PO PRN (18:00)
[2017-05-13] MEDS ORDERED: ALUMINUM/MAGNESIUM/SIMETH 30 ML CUP PO PRN (18:00)
[2017-05-13] MEDS ORDERED: BENZOCAINE 20% TOPICAL SPRAY 60 ML CAN TOPICAL PRN (18:00)
[2017-05-13] MEDS: IBUPROFEN 600 MG TAB PO PRN (19:38)
[2017-05-13] MEDS: SODIUM CHLORIDE 0.9% FLUSH 10 ML FLUSH IV FLUSH SCH (21:00)
[2017-05-13] MEDS: ACETAMINOPHEN 325 MG TAB PO PRN (23:15)
[2017-05-13] MEDS: traMADol HCL 50 MG TAB PO PRN (23:58)
[2017-05-14] MEDS: ACETAMINOPHEN 325 MG TAB PO PRN ×4 (03:06→19:58)
[2017-05-14] MEDS: IBUPROFEN 600 MG TAB PO PRN ×4 (06:19→19:58)
[2017-05-14] MEDS: traMADol HCL 50 MG TAB PO PRN ×3 (07:03→19:59)
[2017-05-14 08:00] VITALS: BP 105/70; PULSE 76; RESP 16; TEMP 98
--- NOTE | 2017-05-14 08:25 | HHI.OB ---
Subjective Post Day: 1 Remarks Doing well not nursing excited to return to [facility] with baby Objective Vitals/I&O Vital Signs Date Time Temp Pulse Resp B/P Pulse Ox O2 Delivery O2 Flow Rate FiO2 05/13/17 19:15 98.2 84 16 108/64 05/13/17 17:10 98.4 16 05/13/17 17:10 80 107/69 05/13/17 17:10 98.4 16 05/13/17 16:15 98.9 05/13/17 16:02 72 112/57 05/13/17 16:00 18 05/13/17 15:45 71 113/66 05/13/17 15:42 18 05/13/17 15:31 76 109/84 05/13/17 15:19 65 115/72 05/13/17 15:10 98.3 18 05/13/17 15:03 85 111/58 05/13/17 14:45 18 05/13/17 14:45 98.3 05/13/17 14:40 77 05/13/17 14:35 77 05/13/17 14:30 79 05/13/17 14:30 72 128/71 05/13/17 14:15 20 05/13/17 14:10 80 05/13/17 14:05 79 05/13/17 14:00 75 127/76 05/13/17 14:00 73 05/13/17 13:40 84 05/13/17 13:35 76 05/13/17 13:30 80 110/58 05/13/17 13:30 76 05/13/17 12:01 62 100/49 05/13/17 12:00 64 05/13/17 11:40 68 05/13/17 11:35 124 05/13/17 11:31 70 101/43 05/13/17 11:30 79 05/13/17 11:15 77 05/13/17 11:10 76 05/13/17 11:05 75 05/13/17 11:00 78 05/13/17 11:00 69 116/73 05/13/17 10:51 98.7 05/13/17 10:50 20 05/13/17 10:31 69 105/62 05/13/17 10:01 64 113/65 Objective Remarks GENERAL: Well-nourished, well-developed patient. CARDIOVASCULAR: Regular rate and rhythm without murmurs, gallops, or rubs. RESPIRATORY: Breath sounds equal bilaterally. No accessory muscle use. ABDOMEN/GI: Abdomen soft, non-tender. Fundus: Firm, non-tender at umbilicus. GENITOURINARY: Light to moderate bleeding. EXTREMITIES: No cyanosis or edema, non-tender, without signs of DVT. Medications and IVs Current Medications Medications (Trade) Dose Ordered Sig/Magno Route Start Time Stop Time Status Last Admin Lactated Ringer's 1,000 ml @ 125 mls/hr Q8H IV 05/12/17 19:49 05/13/17 08:15 Lactated Ringer's 1,000 ml @ 3,000 mls/hr Q20M PRN IV 05/12/17 19:49 05/12/17 20:48 Sodium Chloride 500 ml @ 1,000 mls/hr ONCE PRN IV 05/12/17 20:00 05/15/17 19:59 (NS 1000 ml Inj) 1,000 ml @ 100 mls/hr Q10H PRN IV 05/12/17 20:09 (Zofran Inj) 4 mg Q6H PRN IV 05/12/17 20:00 05/13/17 08:12 (fentaNYL INJ) 50 mcg Q1H PRN IV PUSH 05/12/17 20:00 Fentanyl Citrate 100 mcg 100 mcg Q1H PRN IV PUSH 05/12/17 20:00 (Pfizerpen-G Inj/ NS Inj) 100 ml @ 200 mls/hr Q4H IV 05/13/17 00:00 05/13/17 09:49 Mineral Oil 10 ml 10 ml UNSCH PRN TOPICAL 05/12/17 20:00 (Pitocin 30 Units-NS 500 ml Premix) 500 ml @ 0 mls/hr TITRATE IV 05/13/17 09:15 05/13/17 09:54 (NS Flush) 2 ml BID IV FLUSH 05/13/17 21:00 (NS Flush) 2 ml UNSCH PRN IV FLUSH 05/13/17 17:15 (Tylenol) 650 mg Q4H PRN PO 05/13/17 18:00 05/14/17 07:03 (Motrin) 600 mg Q6H PRN PO 05/13/17 18:00 05/14/17 07:03 (Americaine 20% Top Spr) 1 spray Q4H PRN TOPICAL 05/13/17 18:00 05/13/17 19:44 (Tucks Pads) 1 applic QID PRN TOPICAL 05/13/17 18:00 05/13/17 19:44 (Gayathri-Colace) 2 tab Q12H PRN PO 05/13/17 17:15 (Ambien) 5 mg HS PRN PO 05/13/17 18:00 (Mag-Al Plus Susp Liq) 15 ml Q8H PRN PO 05/13/17 18:00 (Zofran Odt) 4 mg Q6H PRN PO 05/13/17 18:00 (Ultram) 50 mg Q6H PRN PO 05/13/17 23:45 05/14/17 07:03 Assessment/Plan Assessment and Plan with no issues bottling discharge back to [facility] on wednesday Claudia Ya MD May 14, 2017 08:25
--- NOTE | 2017-05-14 15:39 | HHI.DS ---
Admission Date May 12, 2017 at 19:09 Admitting Diagnosis Diagnosis: Vaginal Delivery: Normal : Female Brief History 31 yo swf at 38 1/2 weeks admitted for cervidil due to oligohydramnios. She has been at [facility] since detoxed at [facility] after cleared by me and the long-term. Has been compliant with no issues since. Drugs of choice were opioids, including heroin all used IV. She is hep C + . GBS+ No PTL , GDM or HTN. No leaking, bleeding at time of eval in office. GFM. Did have first trimester bleed of significance. And has had several episodes in third trimester (no previa and etiology never clear) Pt Condition on Discharge: Good Discharge Disposition: Trnsfr to Other Facility ([facility], [place]) Discharge Instructions Diet Instructions: As Tolerated, No Restrictions Activities You Can Perform: Shower Only-No Bath Activities to Avoid: Prolonged Standing, Strenuous Activity, Sexual Activity René Gamboa MD May 14, 2017 15:39
[2017-05-14 20:05] VITALS: BP 100/67; PULSE 68; RESP 18; TEMP 98
[2017-05-14] MEDS: SODIUM CHLORIDE 0.9% FLUSH 10 ML FLUSH IV FLUSH SCH (21:00)
[2017-05-15] MEDS: traMADol HCL 50 MG TAB PO PRN (03:48)
[2017-05-15] MEDS: IBUPROFEN 600 MG TAB PO PRN ×2 (03:49→10:28)
[2017-05-15] MEDS: ACETAMINOPHEN 325 MG TAB PO PRN ×3 (03:49→13:11)
[2017-05-15 07:45] VITALS: BP 118/77; PULSE 68; RESP 16; TEMP 98.1
--- NOTE | 2017-05-15 10:14 | HHI.OB ---
Subjective Post Day: 2 Remarks PPD#2, doing well, Discussed discharge back to [facility] Objective Vitals/I&O Vital Signs Date Time Temp Pulse Resp B/P Pulse Ox O2 Delivery O2 Flow Rate FiO2 05/15/17 07:45 68 16 118/77 05/15/17 07:45 98.1 05/14/17 20:05 98.0 68 18 05/14/17 20:05 100/67 Objective Remarks GENERAL: Well-nourished, well-developed patient. CARDIOVASCULAR: Regular rate and rhythm without murmurs, gallops, or rubs. RESPIRATORY: Breath sounds equal bilaterally. No accessory muscle use. ABDOMEN/GI: Abdomen soft, non-tender. Fundus: Firm, non-tender at umbilicus. GENITOURINARY: Light to moderate bleeding. EXTREMITIES: No cyanosis or edema, non-tender, without signs of DVT. Medications and IVs Current Medications Medications (Trade) Dose Ordered Sig/Magno Route Start Time Stop Time Status Last Admin Lactated Ringer's 1,000 ml @ 125 mls/hr Q8H IV 05/12/17 19:49 05/13/17 08:15 Lactated Ringer's 1,000 ml @ 3,000 mls/hr Q20M PRN IV 05/12/17 19:49 05/12/17 20:48 Sodium Chloride 500 ml @ 1,000 mls/hr ONCE PRN IV 05/12/17 20:00 05/15/17 19:59 (NS 1000 ml Inj) 1,000 ml @ 100 mls/hr Q10H PRN IV 05/12/17 20:09 (Zofran Inj) 4 mg Q6H PRN IV 05/12/17 20:00 05/13/17 08:12 (fentaNYL INJ) 50 mcg Q1H PRN IV PUSH 05/12/17 20:00 Fentanyl Citrate 100 mcg 100 mcg Q1H PRN IV PUSH 05/12/17 20:00 (Pfizerpen-G Inj/ NS Inj) 100 ml @ 200 mls/hr Q4H IV 05/13/17 00:00 05/13/17 09:49 Mineral Oil 10 ml 10 ml UNSCH PRN TOPICAL 05/12/17 20:00 (Pitocin 30 Units-NS 500 ml Premix) 500 ml @ 0 mls/hr TITRATE IV 05/13/17 09:15 05/13/17 09:54 (NS Flush) 2 ml BID IV FLUSH 05/13/17 21:00 (NS Flush) 2 ml UNSCH PRN IV FLUSH 05/13/17 17:15 (Tylenol) 650 mg Q4H PRN PO 05/13/17 18:00 05/15/17 08:37 (Motrin) 600 mg Q6H PRN PO 05/13/17 18:00 05/15/17 03:49 (Americaine 20% Top Spr) 1 spray Q4H PRN TOPICAL 05/13/17 18:00 05/13/17 19:44 (Tucks Pads) 1 applic QID PRN TOPICAL 05/13/17 18:00 05/13/17 19:44 (Gayathri-Colace) 2 tab Q12H PRN PO 05/13/17 17:15 (Ambien) 5 mg HS PRN PO 05/13/17 18:00 (Mag-Al Plus Susp Liq) 15 ml Q8H PRN PO 05/13/17 18:00 (Zofran Odt) 4 mg Q6H PRN PO 05/13/17 18:00 (Ultram) 50 mg Q6H PRN PO 05/13/17 23:45 05/15/17 03:48 Assessment/Plan Assessment and Plan with no issues, was given ULTRAM for breakthrough pain, will need note for [facility] to verify OPIOD use as inpatient. discharge on MOTRIN. discharge back to [facility] TODAY Discharge Planning rOUTINE, PRO[facility] René Gamboa MD May 15, 2017 10:14
[2017-05-15] MEDS ORDERED: IBUP-232 PO (10:16)
[2017-05-17 07:37] LABS: BATH SALTS (MDPV) UR NEG (NEG); ECSTASY (MDMA) UR NEG (NEG); GABAPENTIN UR NEG (NEG); HEROIN (6-ACETYLMORPHINE) UR NEG (NEG); K2 SPICE UR NEG (NEG); OBMETHADONE UR NEG (NEG); OXYCODONE (PERCODAN) NEG (NEG); PHENCYCLIDINE URINE NEG (NEG)
[2017-05-17 07:38] LABS: HYDROMORPHONE U NEG (NEG)
== END 2017-05-15 16:20 | disposition home or self-care (01) | DRG 774 ==
LOC: H2EB 19:09 → H1EA 05-13 17:04
PROVIDERS: ADMIT Obstetrics & Gynecology; ATTEND Obstetrics & Gynecology
PROC: 10E0XZZ Delivery of Products of Conception, External Approach (ICD-10-PCS; principal; 2017-05-12)
PROC: 00HU33Z Insertion of Infusion Device into Spinal Canal, Percutaneous Approach (ICD-10-PCS; 2017-05-12)
PROC: 3E0R3CZ (ICD-10-PCS; 2017-05-12)
DX: O41.00X0 Oligohydramnios, unspecified trimester, not applicable or unspecified (principal); O98.42 Viral hepatitis complicating childbirth; F11.20 Opioid dependence, uncomplicated; O99.324 Drug use complicating childbirth; O99.354 Diseases of the nervous system complicating childbirth; Z37.0 Single live birth; B19.20 Unspecified viral hepatitis C without hepatic coma; G43.909 Migraine, unspecified, not intractable, without status migrainosus; O99.824 Streptococcus B carrier state complicating childbirth; Z3A.38 38 weeks gestation of pregnancy
CPT/HCPCS: 80307; 81001; 85025; 90715; G0481; J2405; J2540; J2590; J7120

== ENCOUNTER 2017-05-29 01:06 | Observation (INO) | payer MEDICAID ==
[~2017-05-29 01:06] MED LIST changes: -CLON.1 PO; -HYDR50CA PO; +IBUP-232 PO; +PREN1TAB58 PO; +SERO25TA PO
[2017-05-29 04:40] VITALS: BP 89/60; PULSE 76; RESP 18; TEMP 98.8
[2017-05-29] MEDS ORDERED: SODIUM CHLORIDE 0.9% FLUSH 10 ML FLUSH IV FLUSH PRN (05:00)
[2017-05-29] MEDS ORDERED: WITCH HAZEL 50%/GLYCERIN 12.5% 40 PAD JAR TOPICAL PRN (05:00)
[2017-05-29] MEDS ORDERED: ACETAMINOPHEN 325 MG TAB PO PRN (05:00)
[2017-05-29] MEDS ORDERED: DOCUSATE SODIUM 50 MG/SENNA 8.6 MG TAB PO PRN (05:00)
[2017-05-29] MEDS ORDERED: ONDANSETRON ODT 4 MG TAB PO PRN (05:00)
[2017-05-29] MEDS ORDERED: ALUMINUM/MAGNESIUM/SIMETH 30 ML CUP PO PRN (05:00)
[2017-05-29] MEDS: LACTATED RINGER'S 1000 ML INJ 1,000 ML IV SCH ×2 (06:04→14:04)
[2017-05-29] MEDS: METHYLERGONOVINE MALEATE 0.2 MG TAB PO SCH ×2 (06:04→14:03)
[2017-05-29] MEDS: CLINDAMYCIN INJ 900 MG in SODIUM CHLORIDE 0.9% INJ 100 ML IV SCH ×2 (06:04→14:03)
[2017-05-29 08:20] VITALS: BP 87/61; PULSE 69; RESP 16; TEMP 98.7
[2017-05-29] MEDS ORDERED: MULTIVIT/MIN/PREN/FOL AC/IRON PRENATAL TAB PO SCH (09:00)
[2017-05-29] MEDS ORDERED: SODIUM CHLORIDE 0.9% FLUSH 10 ML FLUSH IV FLUSH SCH (09:00)
[2017-05-29] MEDS: IBUPROFEN 600 MG TAB PO PRN ×2 (09:30→16:11)
[2017-05-29 10:36] LABS: AUTOMATED NEUTROPHIL # 2.9 TH/MM3 (1.8-7.7); BASOPHIL % 0.2 % (0.0-2.0); EOSINOPHIL # 0.1 TH/MM3 (0-0.4); HEMATOCRIT 43.4 % (35.0-46.0); HEMO FLAGS DIFF FINAL; LYMPH % 30.4 % (9.0-44.0); LYMPHOCYTE # 1.5 TH/MM3 (1.0-4.8); MEAN CORPUSCULAR HEMOGLOBIN 31.6 PG (27.0-34.0); MEAN CORPUSCULAR HGB CONC 34.7 % (32.0-36.0); MONO % 7.9 % (0.0-8.0); NEUT % 59.5 % (16.0-70.0); PLATELET COUNT 189 TH/MM3 (150-450); RED BLOOD COUNT 4.76 MIL/MM3 (4.00-5.30); RED CELL DISTRIBUTION WIDTH 12.9 % (11.6-17.2); WHITE BLOOD COUNT 4.9 TH/MM3 (4.0-11.0)
[2017-05-29 10:37] LABS: AMPHETAMINE, URINE NEG (NEG); BARBITURATES, URINE NEG (NEG); COCAINE, URINE NEG (NEG)
--- NOTE | 2017-05-29 11:00 | HHI.HP ---
HPI Chief Complaint fever Date Seen: May 29, 2017 Travel History International Travel<30 Days: No Contact w/Intl Traveler<30Days: No Known Affected Area: No History of Present Illness HPI 31 yo 2 wk pp pt of Dr. Ya residing at [facility], transferred to our facility from [facility] for possible endometritis. [facility] stated they had no OB employee relations director and laborer tree tapping believed this was out of their scope of practice since she is in period. Pt states that she had a fever all day yesterday. In the afternoon her temp was 103F and [facility] called an ambulance to take her to the hospital. Additional symptoms include mild uterine tenderness, mod vaginal bleeding with an odor. She denies any cough, sore throat , back pain, dysuria. No sick contacts. At [facility] her temp was 101.4F, wet prep with clue cells. TVUS with blood clots, no appearance of retained products. She received flagyl, amp and gent x 1 dose. At [facility], she has received clindamycin 800mg IV q 8 hours, methergine 0.2mg TID, and ibuprofen. she has not had a fever since initial ED check at 1900. PT is anxious to return to [facility] as she has visitation with her older children. 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, clean since january), Hep C anxiety/insomnia guttate psoriasis Obstetric History Obstetric History 5 ftsvd, 2 blighted ovums (D&Cx2) Past Surgical History Narrative Surgical LSC ov cystectomy, D&C, breast augmentation Family History Family History: Negative Social History Alcohol Use: No Tobacco Use: Yes (quit) Substance Abuse: Yes (see pmh) Allergies-Medications (Allergen,Severity, Reaction): Coded Allergies: Doxycycline (Verified Allergy, Intermediate, Hives, 05/12/17) Home Meds Active Scripts Ibuprofen 600 Mg Szz635 Mg PO Q6H PRN ( CRAMPING) #30 TAB Prov:René Gamboa MD 05/15/17 Reported Medications Vit/Iron Fumarate/FA ( Vitamin Formula Tb)1 Each Tablet1 Tab PO DAILY 05/12/17 Quetiapine (Seroquel)25 Mg Tab25 Mg PO HS #30 TAB Ref 0 05/12/17 Review of Systems General / Constitutional: Fever, No: Weight Gain, Chills, Other Eyes: No: Diploplia, Blurred Vision, Visual changes, Pain, Photophobia HENT: No: Headaches, Vertigo, Lightheadedness Cardiovascular: No: Irregular Rhythm, Chest Pain or Discomfort, Palpitations, Tachycardia, Syncope, Varicosities, Edema, Cyanosis Respiratory: No: Cough, Short of Breath, Other Gastrointestinal: No: Nausea, Vomiting, Diarrhea Genitourinary: Vaginal Bleeding, No: Decreased Urinary Output, Oliguria Musculoskeletal: No: Limited ROM, Weakness, Cramping, Edema, Pain Skin: No Rash, No Itching, No Dryness, No Lumps, No Change in Pigmentation, No Change in Nails, No Alopecia, No Lesions Neurologic: No: Weakness, Dizziness, Syncope, Focal Abnormalities, Coordination Problem, Headache, Slurred Speech, Seizures Psychiatric: No: Depression, Suicidal Ideations, Homicidal Ideation Endocrine: No: Heat Intolerance, Cold Intolerance, Polydipsia, Polyuria, Other Physical Exam Vital Signs Date Time Temp Pulse Resp B/P Pulse Ox O2 Delivery O2 Flow Rate FiO2 05/29/17 08:20 98.7 69 16 87/61 05/29/17 04:40 98.8 76 18 89/60 Narrative GENERAL: Well-nourished, well-developed patient. SKIN: Warm and dry. HEAD: Normocephalic and atraumatic. EYES: No scleral icterus. No injection or drainage. ENT: No nasal drainage noted. Mucous membranes pink. Airway patent. NECK: Supple, trachea midline. No JVD. CARDIOVASCULAR: Regular rate and rhythm without murmurs, gallops, or rubs. RESPIRATORY: Breath sounds equal bilaterally. No accessory muscle use. ABDOMEN/GI: Abdomen soft, non-tender, bowel sounds present, no rebound, no guarding Fundal Height:14 wk, min tenderness GENITOURINARY: External Genitalia: intact and normal in appearance EXTREMITIES: No cyanosis or edema. BACK: Nontender without obvious deformity. No CVA tenderness. NEUROLOGICAL: Awake and alert. Motor and sensory grossly within normal limits. Five out of 5 muscle strength in all muscle groups. Normal speech. Data Data Vital Signs Reviewed: Yes Orders Vital Signs (Adult) .QSHIFT (05/29/17 04:48) Activity Oob Ad Amanda (05/29/17 04:48) Ice / Cold Pack PRN (05/29/17 04:48) ^ Massage (05/29/17 04:48) Urinary Catheter Management .PRN (05/29/17 04:48) Diet Regular Basic (05/29/17 Breakfast) Sodium Chloride 0.9% Flush (Ns Flush) (05/29/17 09:00) Sodium Chloride 0.9% Flush (Ns Flush) (05/29/17 05:00) Acetaminophen (Tylenol) (05/29/17 05:00) Ibuprofen (Motrin) (05/29/17 05:00) Witch Jessiac-Glycerin Pad (Tucks Pads) (05/29/17 05:00) Docusate Sodium-Senna (Gayathri-Colace) (05/29/17 05:00) Al-Mag Hy-Si 40-40-4 Mg/Ml Liq (Mag-Al P (05/29/17 05:00) Ondansetron Odt (Zofran Odt) (05/29/17 05:00) Lactated Ringer's 1000 Ml Inj (Lr 1000 M (05/29/17 05:00) Clindamycin Inj (Cleocin Inj) (05/29/17 06:00) Methylergonovine (Methergine) (05/29/17 06:00) Ob/Psych Drug Screen, Urine (05/29/17 04:48) Complete Blood Count With Diff (05/29/17 04:48) Place In Observation (05/29/17 ) Quetiapine (Seroquel) (05/29/17 21:00) Mjncjtxc-Vxe-Mztzd-Iron Prenat (Stuartna (05/29/17 09:00) Metronidazole (Flagyl) (05/29/17 21:00) Assessment/Plan Problem List: (1) Endometritis Assessment and Plan 31 yo 2 wk pp with possible endometritis. Afebrile since 1900 yesterday. Will await for 24 hours afebrile prior to d/c to [facility] Will send home on augmentin and flagyl and f/u in clinic in 3d. At [facility] wet prep with clue cells. TVUS with blood clots, no appearance of retained products. She received flagyl, amp and gent x 1 dose. At [facility], she has received clindamycin 800mg IV q 8 hours, methergine 0.2mg TID, and ibuprofen. Kristie Ponce MD May 29, 2017 11:00
[2017-05-29] MEDS ORDERED: AUGM875T3 PO (11:02)
[2017-05-29] MEDS ORDERED: METR-1 PO (11:02)
--- NOTE | 2017-05-29 11:04 | HHI.DCPOC ---
Discharge Care Plan Diagnosis: (1) Endometritis Your Health Problems Are: Vaginal discharge Vaginal delivery Report Symptoms to Your Doctor -Temperature above 100.5 degrees -Redness, of incision or excessive or foul smelling drainage -Unusual pain or calf pain -Increased vaginal bleeding -Painful or difficulty urinating -Feelings of extreme sadness or anxiety after 2 weeks Goals to Promote Your Health * To prevent worsening of your condition and complications * To maintain your health at the optimal level Directions to Meet Your Goals Take your medications as prescribed Follow your dietary instruction Follow activity as directed Ensure plenty of rest for recovery Drink fluids for hydration Keep your appointments as scheduled Take your immunizations and boosters as scheduled If your symptoms worsen call your PCP, if no PCP go to Urgent Care Center or Emergency Room Smoking is Dangerous to Your Health. Avoid second hand smoke Call the 24-hour crisis hotline for domestic abuse at Kristie Ponce MD May 29, 2017 11:04
[2017-05-29 11:33] VITALS: BP 99/63; PULSE 62; RESP 16; TEMP 99.2
[2017-05-29 13:40] VITALS: TEMP 98.7
[2017-05-29 16:03] VITALS: BP 104/67; PULSE 68; RESP 16; TEMP 98.3
[2017-05-29] MEDS ORDERED: QUEtiapine FUMARATE 25 MG TAB PO SCH (21:00)
[2017-05-29] MEDS ORDERED: metroNIDAZOLE 500 MG TAB PO SCH (21:00)
[2017-06-03 13:52] LABS: BATH SALTS (MDPV) UR NEG (NEG); ECSTASY (MDMA) UR NEG (NEG); GABAPENTIN UR NEG (NEG); HEROIN (6-ACETYLMORPHINE) UR NEG (NEG); HYDROMORPHONE U NEG (NEG); K2 SPICE UR NEG (NEG); OBMETHADONE UR NEG (NEG); OXYCODONE (PERCODAN) NEG (NEG); PHENCYCLIDINE URINE NEG (NEG)
== END 2017-05-29 19:07 | disposition home or self-care (01) ==
LOC: H1EA 04:46 → INTOOBSV 04:46 → UNDODISIN 19:07
PROVIDERS: ADMIT Obstetrics & Gynecology; ATTEND Obstetrics & Gynecology
DX: O86.12 Endometritis following delivery (principal); Z87.891 Personal history of nicotine dependence; Z88.1 Allergy status to other antibiotic agents
CPT/HCPCS: G0378 ×2; 76937; 80307; 85025; G0481; J7120

== ENCOUNTER 2017-05-30 00:35 | Inpatient (IN) | payer MEDICAID ==
[2017-05-30] VITALS (8 sets, daily range): BP systolic 88–115; BP diastolic 50–74; PULSE 54–92; RESP 16–20; TEMP 96.5–99.5; O2SAT 89–99
[~2017-05-30] VITALS: Ht 170.2 cm; Wt 84.1 kg
[~2017-05-30 00:35] MED LIST changes: +AUGM875T3 PO; +METR-1 PO
--- NOTE | 2017-05-30 02:29 | PD ---
HPI Chief Complaint: Abdominal Pain Time Seen by Provider: 01:07 Travel History International Travel<30 days: No Contact w/Intl Traveler<30days: No Traveled to known affect area: No History of Present Illness HPI 31yo F who is 2 weeks from vaginal delivery with Dr. Ya presents to the ED today because she had a fever at 10pm. Pt was discharge yesterday and informed to come back if she had a fever. Pt had temperature of 101.8F at 10pm and took ibuprofen and acetaminophen. Pt is part of [employer] and states that she is unable to get her antibiotics until Wednesday. States she has the same amount of abdominal cramping and vaginal bleeding. Denies any nausea, vomiting, chest pain, sob. PFSH Past Medical History Anxiety: Yes Cancer: No Cardiovascular Problems: No Cerebrovascular Accident: No Diabetes: No Diminished Hearing: No Endocrine: No Gastrointestinal Disorders: Yes (HEMORRHOIDS) Genitourinary: No Hepatitis: Yes (c) Immune Disorder: No Musculoskeletal: No Neurologic: Yes Psychiatric: No Reproductive: Yes Respiratory: No Integumentary: Yes (PSORIASIS) Immunizations Current: Yes Migraines: No Pneumonia: Yes Seizures: Yes (1x, no diagnosis given) Tetanus Vaccination: < 5 Years Influenza Vaccination: No ?: Not LMP: just gave 2 wks ago hasnt stopped bleeding Menopausal: No : 6 Para: 2 Miscarriage: 2 : 2 Ovarian Cysts: Yes (REMOVED) Dilation and Curettage (D&C): Yes (X3) Past Surgical History Abdominal Surgery: Yes (LAPARSCOPIC) Cardiac Surgery: No Gynecologic Surgery: Yes (D&C x2) Tonsillectomy: Yes Other Surgery: Yes (BREAST AUGMENTATION) Social History Alcohol Use: Yes (occ) Tobacco Use: No (quit) Substance Use: Yes (Dilaudid IV daily, 8 months ago) Allergies-Medications (Allergen,Severity, Reaction): Coded Allergies: Doxycycline (Verified Allergy, Intermediate, Hives, 05/30/17) Reported Meds & Prescriptions Reported Meds & Active Scripts Active Augmentin (Amoxicillin-Clavulanate) 875-125 Mg Tab 1 Tab PO BID Flagyl (Metronidazole) 500 Mg Tab 500 Mg PO BID Ibuprofen 600 Mg Tab 600 Mg PO Q6H PRN Reported Vitamin Formula Tb ( Vit/Iron Fumarate/FA) 1 Each Tablet 1 Tab PO DAILY Review of Systems Except as stated in HPI: all other systems reviewed are Neg Physical Exam Narrative GEN: 31yo F in mild distress. SKIN: Warm and dry. HEAD: Normocephalic, atraumatic. NECK: No JVD. Trachea midline. CV: S1, S2. Lungs: CTA B/L, equal breath sounds. Abd: soft, no tenderness to palpation. No rebound tenderness or guarding. EXT: soft, no edema. NEURO: No focal neurologic deficits. Data Data Last Documented VS Vital Signs Date Time Temp Pulse Resp B/P Pulse Ox O2 Delivery O2 Flow Rate FiO2 05/30/17 00:38 99.5 92 16 109/70 98 Room Air Orders Ampicillin-Sulbactam Inj (Unasyn Inj) (05/30/17 02:30) Metronidazole (Flagyl) (05/30/17 02:30) Metronidazole (Flagyl) (05/30/17 06:00) Activity Oob With Assistance (05/30/17 02:21) Vital Signs (Adult) JEANNIE.Q4H (05/30/17 02:21) Admit Order (Ed Use Only) (05/30/17 02:21) MDM Medical Decision Making Medical Screen Exam Complete: Yes Emergency Medical Condition: Yes Differential Diagnosis Endometritis vs. failed outpatient treatment Narrative Course 31yo F who was just discharged by Dr. Tabor yesterday here because she is unable to obtain antibiotics and has a fever. I discussed with Dr. Ponce who recommended I speak with Dr. Ya. I discussed case with Dr. Ya and she recommended admitting to her service and starting her on IV unasyn Q 8 hours and flagyl 500mg Q 8Hr. Diagnosis Primary Impression: Endometritis Admitting Information Admitting Physician Requests: Admit Deya Nails DO May 30, 2017 02:29
[2017-05-30] MEDS ORDERED: metroNIDAZOLE 500 MG TAB PO ONE (02:30)
[2017-05-30] MEDS ORDERED: AMPICILLIN-SULBACTAM INJ 1,500 MG in SODIUM CHLORIDE 0.9% INJ 100 ML IV ONE (02:30)
[2017-05-30] MEDS ORDERED: metroNIDAZOLE 500 MG INJ 100 ML IV ONE (02:30)
[2017-05-30] MEDS: metroNIDAZOLE 500 MG INJ 100 ML IV SCH ×3 (02:30→18:33)
[2017-05-30] MEDS ORDERED: metroNIDAZOLE 500 MG TAB PO SCH (06:00)
[2017-05-30] MEDS ORDERED: AMPICILLIN-SULBACTAM INJ 1,500 MG in SODIUM CHLORIDE 0.9% INJ 100 ML IV SCH (06:00)
[2017-05-30] MEDS: AMPICILLIN-SULBACTAM INJ 1,500 MG in SODIUM CHLORIDE 0.9% INJ 100 ML IV SCH ×2 (07:56→17:12)
[2017-05-30 12:17] LABS: BASOPHIL % 0.3 % (0.0-2.0); EOSINOPHIL # 0.4 TH/MM3 (0-0.4); EOSINOPHIL % 7.4 % (0.0-4.0); HEMATOCRIT 42.7 % (35.0-46.0); HEMO FLAGS DIFF FINAL; LYMPH % 24.9 % (9.0-44.0); LYMPHOCYTE # 1.2 TH/MM3 (1.0-4.8); MEAN CELL VOLUME 92.7 FL (80.0-100.0); MEAN CORPUSCULAR HEMOGLOBIN 31.1 PG (27.0-34.0); MEAN CORPUSCULAR HGB CONC 33.6 % (32.0-36.0); NEUT % 61.4 % (16.0-70.0); PLATELET COUNT 172 TH/MM3 (150-450); RED BLOOD COUNT 4.61 MIL/MM3 (4.00-5.30); RED CELL DISTRIBUTION WIDTH 13.4 % (11.6-17.2); WHITE BLOOD COUNT 4.9 TH/MM3 (4.0-11.0)
[2017-05-30 12:39] LABS: ALT (GPT) 261 U/L (10-53); AST (GOT) 338 U/L (15-37)
[2017-05-30 12:41] LABS: ALKALINE PHOSPHATASE 79 U/L (45-117); INDIRECT BILIRUBIN 0.2 MG/DL (0.0-0.8); TOTAL BILIRUBIN ADULT 0.3 MG/DL (0.2-1.0)
--- NOTE | 2017-05-30 12:42 | HHI.HP ---
HPI Chief Complaint high fever and cramping 2 1/2 weeks post vaginal delivery post endometriitis Date Seen: May 30, 2017 Travel History International Travel<30 Days: No Contact w/Intl Traveler<30Days: No Known Affected Area: No History of Present Illness HPI 31 yo swf 2 1/2 weeks post here within hours of discharge for persistence of high fever, cramping and bleeding post treatment for endometrritis. Sent back to [facility] last evening with po antibitoics that they could not fill until Wednesday apparently. She spiked again last night at [facility] to > 102 and had chills, and pain and was brought back. Her delivery was uneventful. She intends to have a PPTL She is in abstinence based recovery for opioid depiction and in residence at [facility]. Her is there with her and family have other children. She is Hep C + She has not other medical issues other than she is a very difficult stick. No nausea, vomiting, diarrhea or constipation. History Past Medical History Narrative Medical as in HPI Obstetric History Obstetric History five term vaginal births Past Surgical History Surgical History: No Previous Surgery Social History Alcohol Use: No Tobacco Use: No Substance Abuse: No Allergies-Medications (Allergen,Severity, Reaction): Coded Allergies: Doxycycline (Verified Allergy, Intermediate, Hives, 05/30/17) Home Meds Active Scripts Amoxicillin-Clavulanate (Augmentin)875-125 Mg Tab1 Tab PO BID #14 TAB Ref 0 Prov:Kristie Ponce MD 05/29/17 Metronidazole (Flagyl)500 Mg How411 Mg PO BID #14 TAB Prov:Kristie Ponce MD 05/29/17 Ibuprofen 600 Mg Muf426 Mg PO Q6H PRN ( CRAMPING) #30 TAB Prov:René Gamboa MD 05/15/17 Reported Medications Vit/Iron Fumarate/FA ( Vitamin Formula Tb)1 Each Tablet1 Tab PO DAILY 05/12/17 Review of Systems General / Constitutional: Fever, Chills HENT: Headaches Genitourinary: Pelvic Pain Physical Exam Vital Signs Date Time Temp Pulse Resp B/P Pulse Ox O2 Delivery O2 Flow Rate FiO2 05/30/17 08:00 97.1 69 18 90/57 99 05/30/17 04:37 98.3 75 17 98/63 96 05/30/17 03:52 67 20 93/55 98 Room Air 05/30/17 03:46 98.5 67 18 88/50 97 Room Air 05/30/17 00:38 99.5 92 16 109/70 98 Room Air Narrative GENERAL: Well-nourished, well-developed patient. SKIN: Warm and dry. HEAD: Normocephalic and atraumatic. EYES: No scleral icterus. No injection or drainage. ENT: No nasal drainage noted. Mucous membranes pink. Airway patent. NECK: Supple, trachea midline. No JVD. CARDIOVASCULAR: Regular rate and rhythm without murmurs, gallops, or rubs. RESPIRATORY: Breath sounds equal bilaterally. No accessory muscle use. BREASTS: Bilateral exam showed no masses , no retractions, no nipple discharge. ABDOMEN/GI: Abdomen soft, non-tender, bowel sounds present, no rebound, no guarding uterus small and tender to deep palpation no CVAT lochia not foul or excessive EXTREMITIES: No cyanosis or edema. BACK: Nontender without obvious deformity. No CVA tenderness. NEUROLOGICAL: Awake and alert. Motor and sensory grossly within normal limits. Five out of 5 muscle strength in all muscle groups. Normal speech. Data Data Orders Ampicillin-Sulbactam Inj (Unasyn Inj) (05/30/17 02:30) Metronidazole (Flagyl) (05/30/17 02:30) Metronidazole (Flagyl) (05/30/17 06:00) Diet 1800 Ada Cons Carb (05/30/17 Breakfast) Activity Oob With Assistance (05/30/17 02:21) Vital Signs (Adult) JEANNIE.Q4H (05/30/17 02:21) Admit Order (Ed Use Only) (05/30/17 02:21) Metronidazole 500 Mg Inj (Flagyl 500 Mg (05/30/17 02:30) Metronidazole 500 Mg Inj (Flagyl 500 Mg (05/30/17 02:30) Ampicillin-Sulbactam Inj (Unasyn Inj) (05/30/17 09:00) Complete Blood Count With Diff (05/30/17 09:10) Hepatic Functional Panel (05/30/17 09:10) Us Pelvis Comp Slot Machine Mechanic/Non-Preg (05/30/17 ) Labs Laboratory Tests Test 05/30/17 10:45 White Blood Count 4.9 Red Blood Count 4.61 Hemoglobin 14.3 Hematocrit 42.7 Mean Corpuscular Volume 92.7 Mean Corpuscular Hemoglobin 31.1 Mean Corpuscular Hemoglobin 33.6 Concent Red Cell Distribution Width 13.4 Platelet Count 172 Mean Platelet Volume 7.3 Neutrophils (%) (Auto) 61.4 Lymphocytes (%) (Auto) 24.9 Monocytes (%) (Auto) 6.0 Eosinophils (%) (Auto) 7.4 Basophils (%) (Auto) 0.3 Neutrophils # (Auto) 3.0 Lymphocytes # (Auto) 1.2 Monocytes # (Auto) 0.3 Eosinophils # (Auto) 0.4 Basophils # (Auto) 0.0 CBC Comment DIFF FINAL Differential Comment Assessment/Plan Assessment and Plan Post endometriitis requiring IV antibiotics for minimum 72 hours opoioid addiction in remission. Claudia Ya MD May 30, 2017 12:41
[2017-05-30] MEDS ORDERED: ACETAMINOPHEN 325 MG TAB PO PRN (13:45)
[2017-05-30] MEDS: IBUPROFEN 800 MG TAB PO PRN (15:04)
--- NOTE | 2017-05-30 20:14 | RADRPT ---
EXAM DATE/TIME: 05/30/2017 18:32 [facility] COMPARISON: No previous studies available for comparison. INDICATIONS : Persistent endometritis. Status post vaginal delivery. MEDICAL HISTORY : Hepatitis C. Hemorrhoids. Pneumonia. Seizures. Blighted ovum. Psoriasis. Anixety. Substance use. SURGICAL HISTORY : Tonsillectomy. Laparscopic. Ovarian cysts removed. D&C x3. Breast augmentation. ENCOUNTER: Initial ACUITY: 2 weeks PAIN SCORE: 3/10 LOCATION: Bilateral pelvis MEASUREMENTS: UTERUS: 11.1 x 9.4 x 6.7 cm ENDOMETRIAL STRIPE: 13 mm RIGHT OVARY: 2.9 x 3.0 x 1.9 cm LEFT OVARY: 2.9 x 2.1 x 1.9 cm FINDINGS: UTERUS: The myometrium has homogeneous echotexture without mass. Heterogeneous thickened endometrium. No sig nificant flow. RIGHT OVARY: Ovary contains no mass or significant cystic lesion. Tubular structure may be related to hydrosalpin x. LEFT OVARY: Ovary contains no mass or significant cystic lesion. MISCELLANEOUS: No free fluid. CONCLUSION: 1. Heterogeneous thickened endometrium. 2. Possible hydrosalpinx on the right. Christian Xie MD on May 30, 2017 at 20:10 Board Certified Radiologist. This report was verified electronically.
[2017-05-31 00:12] VITALS: BP 95/54; PULSE 55; RESP 18; TEMP 97.6; O2SAT 97
[2017-05-31] MEDS: AMPICILLIN-SULBACTAM INJ 1,500 MG in SODIUM CHLORIDE 0.9% INJ 100 ML IV SCH ×3 (03:09→17:02)
[2017-05-31] MEDS: metroNIDAZOLE 500 MG INJ 100 ML IV SCH ×3 (04:06→17:40)
[2017-05-31 04:50] VITALS: BP 93/54
[2017-05-31 08:00] VITALS: BP 101/55; PULSE 58; RESP 16; TEMP 96.5; O2SAT 95
[2017-05-31] MEDS: IBUPROFEN 800 MG TAB PO PRN ×2 (08:15→23:00)
[2017-05-31 12:00] VITALS: BP 108/65; PULSE 82; RESP 16; TEMP 97.4; O2SAT 96
--- NOTE | 2017-05-31 12:31 | HHI.PR ---
Subjective Remarks cramping is still significant mostly on left side. lochia minimal Objective - Vital Signs Date Time Temp Pulse Resp B/P Pulse Ox O2 Delivery O2 Flow Rate FiO2 05/31/17 09:20 16 05/31/17 08:00 96.5 58 16 101/55 95 05/31/17 04:50 93/54 05/31/17 00:12 97.6 55 18 95/54 97 05/30/17 19:05 97.4 76 18 115/74 97 05/30/17 16:00 98.7 54 18 100/59 96 I/O 05/30/17 05/30/17 05/30/17 05/31/17 05/31/17 05/31/17 06:59 14:59 22:59 06:59 14:59 22:59 Intake Total 240 ml 700 ml 360 ml 480 ml Balance 240 ml 700 ml 360 ml 480 ml Intake Oral 240 ml 700 ml 360 ml 480 ml # Voids 1 3 2 5 # Bowel Movements 0 1 0 0 Result Diagram: 05/30/17 1045 Other Results ultrasound suggests possible hydro (vs Pyo) salpinx A/P Assessment and Plan post endometriitis possible small TOA on sonogram Will give 24 hours more IV antibiotics and if still clinically painful will scope and address tubes. Claudia Ya MD May 31, 2017 12:30
[2017-05-31 17:00] VITALS: BP 106/56; PULSE 57; RESP 16; TEMP 98; O2SAT 99
[2017-05-31 19:00] VITALS: BP 96/70; PULSE 67; RESP 17; TEMP 97; O2SAT 97
[2017-06-01 00:35] VITALS: BP 105/58; PULSE 55; RESP 16; TEMP 97.6; O2SAT 97
[2017-06-01] MEDS: AMPICILLIN-SULBACTAM INJ 1,500 MG in SODIUM CHLORIDE 0.9% INJ 100 ML IV SCH ×3 (01:09→17:31)
[2017-06-01] MEDS: metroNIDAZOLE 500 MG INJ 100 ML IV SCH ×3 (02:51→17:31)
[2017-06-01 08:00] VITALS: BP 101/57; PULSE 55; RESP 16; TEMP 96.6; O2SAT 99
[2017-06-01] MEDS: IBUPROFEN 800 MG TAB PO PRN ×3 (08:28→23:44)
[2017-06-01 12:00] VITALS: BP 110/61; PULSE 65; RESP 16; TEMP 97.5; O2SAT 97
[2017-06-01 16:00] VITALS: BP 110/71; PULSE 53; RESP 16; TEMP 98.2; O2SAT 96
--- NOTE | 2017-06-01 18:21 | HHI.PR ---
Subjective Remarks Still complaining of severe cramps not requesting any narcotics lochia minimal Objective - Vital Signs Date Time Temp Pulse Resp B/P Pulse Ox O2 Delivery O2 Flow Rate FiO2 06/01/17 12:00 97.5 65 16 110/61 97 06/01/17 08:00 96.6 55 16 101/57 99 06/01/17 00:35 97.6 55 16 105/58 97 05/31/17 19:00 97.0 67 17 96/70 97 I/O 05/31/17 05/31/17 05/31/17 06/01/17 06/01/17 06/01/17 07:00 15:00 23:00 07:00 15:00 23:00 Intake Total 480 ml 720 ml 480 ml 480 ml Balance 480 ml 720 ml 480 ml 480 ml Intake Oral 480 ml 720 ml 480 ml 480 ml # Voids 5 4 3 2 # Bowel Movements 0 1 0 0 Result Diagram: 05/30/17 1045 Other Results abdomen soft with lower pelvic tenderness A/P Diagnosis: (1) Endometritis Assessment and Plan resolving endometriitis hydrosalpinx will be addressed surgically Wednesday am Will ligate other tube at that time per request. Claudia Ya MD Jun 01, 2017 18:21
[2017-06-01 20:16] VITALS: BP 105/67; PULSE 56; RESP 17; TEMP 97.4; O2SAT 100
[2017-06-02] VITALS: BP 108/65; PULSE 59; RESP 18; TEMP 96.8; O2SAT 97
[2017-06-02] MEDS: AMPICILLIN-SULBACTAM INJ 1,500 MG in SODIUM CHLORIDE 0.9% INJ 100 ML IV SCH ×3 (00:50→17:04)
[2017-06-02] MEDS ORDERED: POVIDONE IODINE 5% (ANTISEPSIS KIT) 4 APPLICATIONS EACH NARE PRN (01:45)
[2017-06-02] MEDS ORDERED: INSULIN HUMAN REGULAR 1,000 UNITS/10 ML VIAL SQ PRN (01:45)
[2017-06-02] MEDS ORDERED: CHLORHEXIDINE GLUCONATE 2 % 1 PACK (2 CLOTHS) TOPICAL PRN (01:45)
[2017-06-02] MEDS ORDERED: METOPROLOL TARTRATE 25 MG TAB PO PRN (01:45)
[2017-06-02] MEDS ORDERED: SODIUM CHLORID 0.9% 500 ML IV PRN (01:45)
[2017-06-02] MEDS ORDERED: LACTATED RINGER'S 1000 ML IV PRN (01:45)
[2017-06-02] MEDS: metroNIDAZOLE 500 MG INJ 100 ML IV SCH ×3 (02:32→17:03)
[2017-06-02 04:00] VITALS: BP 99/58; PULSE 59; RESP 18; TEMP 96.7; O2SAT 99
[2017-06-02 08:11] VITALS: BP 104/64; PULSE 49; RESP 20; TEMP 96.7; O2SAT 99
[2017-06-02] MEDS: IBUPROFEN 800 MG TAB PO PRN ×2 (09:06→19:47)
[2017-06-02 12:00] VITALS: BP 111/68; PULSE 50; RESP 20; TEMP 97.2; O2SAT 99
[2017-06-02 16:00] VITALS: BP 107/67; PULSE 56; RESP 20; TEMP 97.3; O2SAT 97
[2017-06-02 19:00] VITALS: BP 107/61; PULSE 53; RESP 16; TEMP 98.2; O2SAT 99
[2017-06-02] MEDS ORDERED: QUEtiapine FUMARATE 25 MG TAB PO ONE (20:45)
[2017-06-02] MEDS ORDERED: ceFAZolin 1,000 MG/NS 100 ML IV SCH ×2 (20:45)
[2017-06-03] VITALS: BP 108/59; PULSE 54; RESP 16; TEMP 96.7; O2SAT 98
[2017-06-03] MEDS: AMPICILLIN-SULBACTAM INJ 1,500 MG in SODIUM CHLORIDE 0.9% INJ 100 ML IV SCH ×2 (01:42→09:00)
[2017-06-03] MEDS: metroNIDAZOLE 500 MG INJ 100 ML IV SCH ×2 (01:42→09:32)
[2017-06-03 04:00] VITALS: BP 114/67; PULSE 48; RESP 17; TEMP 96.9; O2SAT 96
[2017-06-03 08:00] VITALS: BP 117/55; PULSE 54; RESP 18; TEMP 97.1; O2SAT 98
[2017-06-03] MEDS ORDERED: ACETAMINOPHEN 1000 MG/100 ML VIAL IV ONE (09:06)
[2017-06-03] MEDS ORDERED: MIDAZOLAM HCL 2 MG/2 ML VIAL ONE ×2 (09:06→10:41)
[2017-06-03] MEDS ORDERED: BUPIVACAINE/EPINEPHRINE 0.5% PF 10 ML VIAL INFIL ONE (09:44)
--- NOTE | 2017-06-03 10:20 | PD.OP ---
Operative Report Date of Surgery: Jun 03, 2017 Preoperative Diagnosis: post endometriitis multiparity desired sterility Postoperative Diagnosis: same Procedure: bilateral salpingectomy Anesthesia: GET Surgeon: Claudia Ya Coil Finisher(s): OR staff Operation and Findings: Claudia Membreno MD Jun 03, 2017 10:20
[2017-06-03] MEDS ORDERED: diphenhydrAMINE HCL 50 MG/ML VIAL ONE (10:23)
--- NOTE | 2017-06-03 10:23 | HHI.DCPOC ---
Discharge Care Plan Report Symptoms to Your Doctor -Temperature above 100.5 degrees -Redness, of incision or excessive or foul smelling drainage -Unusual pain or calf pain -Increased vaginal bleeding -Painful or difficulty urinating -Feelings of extreme sadness or anxiety after 2 weeks Goals to Promote Your Health * To prevent worsening of your condition and complications * To maintain your health at the optimal level Directions to Meet Your Goals Take your medications as prescribed Follow your dietary instruction Follow activity as directed Ensure plenty of rest for recovery Drink fluids for hydration Keep your appointments as scheduled Take your immunizations and boosters as scheduled If your symptoms worsen call your PCP, if no PCP go to Urgent Care Center or Emergency Room Smoking is Dangerous to Your Health. Avoid second hand smoke Call the 24-hour crisis hotline for domestic abuse at Claudia Ya MD Jun 03, 2017 10:23
[2017-06-03] MEDS ORDERED: ONDANSETRON HCL 4 MG/2 ML VIAL IV PUSH PRN (10:30)
[2017-06-03] MEDS ORDERED: *RESP: ALBUTEROL 2.5 MG/3 ML NEB (PRN) PERIprocedural Use ONLY NEB ONE (10:34)
[2017-06-03] MEDS ORDERED: DO NOT ADM ANY ANTICOAGULANT DRUGS PRN (10:40)
[2017-06-03] MEDS ORDERED: *ONDANSETRON 4 MG VIAL PERIprocedural Use ONLY ONE (10:40)
[2017-06-03] MEDS ORDERED: *HYDROmorphone PF 1 MG VIAL PERIprocedural Use ONLY ONE (10:44)
[2017-06-03] MEDS ORDERED: fentaNYL CITRATE 250 MCG/5 ML AMP ONE (10:59)
[2017-06-03] MEDS: IBUPROFEN 800 MG TAB PO PRN (11:55)
[2017-06-03 12:00] VITALS: BP 108/63; PULSE 57; RESP 18; TEMP 96.7; O2SAT 98
[2017-06-03] MEDS ORDERED: ONDANSETRON HCL 4 MG/2 ML VIAL IV PUSH ONE (12:00)
[2017-06-03] MEDS ORDERED: ePHEDrine/NS 25 MG/5 ML SYR IV ONE (12:00)
[2017-06-03] MEDS ORDERED: NEOSTIGMINE 3 MG/3 ML SYR IV ONE (12:00)
[2017-06-03] MEDS ORDERED: PROPOFOL 200 MG/20 ML AMP IV ONE (12:00)
--- NOTE | 2017-06-04 12:57 | MP ---
cc: CLAUDIA LOPEZ DATE OF SURGERY 05/29/2017 PREOPERATIVE DIAGNOSIS endometritis slow to recover do the right hydrosalpinx, multiparity and desired sterility. POSTOPERATIVE DIAGNOSIS endometritis slow to recover do the right hydrosalpinx, multiparity and desired sterility. PROCEDURE Bilateral salpingectomy ANESTHESIA General SURGEON Claudia Lopez MD FINDINGS Examination under anesthesia was unremarkable. Upon entering the peritoneal cavity, liver edge quite healthy. Uterus appeared normal. The right tube was mildly enlarged. It had been reduced in volume significantly with five days of IV antibiotics. The tube was clubbed. The left tube had mild clubbing, but was otherwise unremarkable. Both were easily removed using the harmonic scalpel to separate them from the tubo-ovarian ligament. They were removed through the left lower port. COUNTS Sponge, instrument, and needle counts were correct. PROCEDURE The patient was identified as Mirtha Granger. Her permit had been reviewed with her yesterday. She had been taken to the operating room, placed under general endotracheal anesthesia. A time-out was performed. She was prepped and draped in the usual sterile fashion. She had received a gram of Ancef. She had sequential on. Examination under anesthesia was performed. A red rubber was replaced. A single-toothed tenaculum placed on the cervix and an acorn placed. Attention was directed to the abdomen. A 5 mm incision was made in the umbilicus and a 5 mm trocar and sleeve placed. In the right lower quadrant, a 5 mm was placed and an [address] and then systematic evaluation of the abdominal and pelvic contents was performed with the findings as noted above. The right tube was grasped and transected from the tubo-ovarian ligament and cut off at the base near the uterus. The left was treated the same. They were both pulled through the 10 mm port. They were sent to pathology. Pedicles were examined for hemostasis. There was no iatrogenic injury. Sponge, instrument, and needle counts were correct. She tolerated the procedure well and she went to the recovery room stable. MD JORGE Canseco/EMEKA /11:05 AM /12:46 PM
== END 2017-06-03 15:53 | disposition home or self-care (01) | DRG 769 ==
LOC: NEPE 00:35 → NEDA 02:25 → N06B 04:20
PROVIDERS: ADMIT Obstetrics & Gynecology; ATTEND Obstetrics & Gynecology
PROC: 0UT74ZZ Resection of Bilateral Fallopian Tubes, Percutaneous Endoscopic Approach (ICD-10-PCS; principal; 2017-05-29)
DX: O86.12 Endometritis following delivery (principal); O86.19 Other infection of genital tract following delivery; O98.43 Viral hepatitis complicating the puerperium; B19.20 Unspecified viral hepatitis C without hepatic coma; F11.21 Opioid dependence, in remission; F41.9 Anxiety disorder, unspecified; N70.11 Chronic salpingitis; Z30.2 Encounter for sterilization
CPT/HCPCS: 76856; 76937; 80074; 80076; 80307; 84443; 85025; 87535; 88302; G0481; J0131; J0295; J0690; J1170; J1200; J2250; J2405; J2710; J3010; J7120; J7613